=== PATIENT | female | born 1980 | race African-American/Black ===

== ENCOUNTER 2022-01-16 20:05 | Emergency (ER) | payer OTHER, SELFPAY ==
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
[2022-01-16 20:16] VITALS: BP 113/72; PULSE 98; RESP 20; TEMP 36.8; O2SAT 100
[2022-01-16 20:44] VITALS: BP 113/72; BP 130/74; PULSE 129; PULSE 98; RESP 16; TEMP 36.8; O2SAT 100; BMI 32.5
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
[2022-01-16] MEDS: Acetaminophen 325 MG TABLET 975 MG PO (22:16)
[2022-01-16] MEDS: Ibuprofen 400 MG TABLET PO (22:16)
== END 2022-01-16 23:19 | disposition home or self-care (01) ==
PROVIDERS: Emergency Provider Student in an Organized Health Care Education/Training Program; PCP Internal Medicine
DX: S00.83XA Contusion of other part of head, initial encounter (principal); Y00.XXXA Assault by blunt object, initial encounter; Y93.89 Activity, other specified; Y92.9 Unspecified place or not applicable; Y99.9 Unspecified external cause status
CPT/HCPCS: 70450; 99284

== ENCOUNTER 2025-06-24 10:19 | Inpatient (IN) | payer OTHER, SELFPAY ==
--- NOTE | ~2025-06-24 | XR_ITS ---
CLINICAL HISTORY: Bradycardia, hypotension 1 view chest x-ray Comparison: None provided Findings: No consolidation or effusion. Normal size heart. No acute fracture. IMPRESSION: 1. No acute findings. This document has been electronically signed by: Kedar Saleh MD on 06/25/2025 20:23:24
[2025-06-24 10:23] VITALS: BP 118/63; PULSE 88; RESP 16; TEMP 36.1; O2SAT 98; BMI 28.1
--- NOTE | 2025-06-24 10:45 | ED.GENADULT ---
HPI - General Adult General Chief complaint: Psychiatric Symptoms Stated complaint: hallucination Time Seen by Provider: 06/24/25 10:32 Source: patient Mode of arrival: ambulatory Limitations: no limitations History of Present Illness ED Provider: Verenice Varner PA-C HPI narrative: Patient is a 45 year old assigned female at with a history of crack cocaine use presenting to the emergency department today with suicidal ideation and crack use. Patient states that she has been feeling more down / suicidal lately and has been using crack cocaine. Patient denies any other complaints at this time. Related Data Home Medications ?Medication ?Instructions ?Recorded ?Confirmed bupropion HCl 75 mg tablet 75 mg PO DAILY 06/24/25 06/24/25 hydroxyzine HCl 50 mg tablet 50 mg PO BID PRN Anxiety 06/24/25 06/24/25 ibuprofen 600 mg tablet 600 mg PO BID PRN pain 06/24/25 06/24/25 nicotine (polacrilex) 4 mg gum 4 mg PO Q4H PRN Nicotine Cravings 06/24/25 06/24/25 trazodone 50 mg tablet 50 mg PO BEDTIME 06/24/25 06/24/25 Allergies Allergy/AdvReac Type Severity Reaction Status Date / Time No Known Allergies Allergy Verified 06/24/25 10:25 Review of Systems Constitutional: Constitutional: Reports as per HPI Eyes: Eyes: Reports as per HPI ENT: Reports as per HPI Cardiovascular: Cardiovascular: Reports as per HPI Respiratory: Respiratory: Reports as per HPI Gastrointestinal: Gastrointestinal: Reports as per HPI Genitourinary: Genitourinary: Reports as per HPI Musculoskeletal: Musculoskeletal: Reports as per HPI Integumentary/Breasts: Skin/Breast: Reports as per HPI Neurologic: Reports as per HPI Psychiatric: Psychiatric: Reports as per HPI Endocrine: Endocrine: Reports as per HPI Hematologic/Lymphatic: Hematologic/Lymphatic: Reports as per HPI Allergic/Immunologic: Allergic/Immunologic: Reports as per HPI [facility] Past Medical History Attestation statement: The following information was validated with the patient. Source: old records reviewed and nursing notes reviewed Medical History (Updated 06/26/25 @ 11:26 by Bipin Acevedo MD) Bipolar depression Social History Social History Household Members: None Housing: Homeless Housing Other:: pt stated she sometimes stay with her mother, friend, or on street Do you presently have visiting nurse or other home services: No Patient Tobacco Use Status: Current someday Tobacco user Tobacco use type: Cigarette Cigarettes Per Day: 3 Years Smoked: 20 e-Cigarette/Vaping Use: Never Used Patient Interested in Nicotine Replacement: No Patient Given Instructions on How to Stop Smoking: No (Pt declined) Second Hand Smoke Exposure: No Substance Use Type: Crack/Cocaine Currently Displaying Signs/Symptoms of Drug Intoxication Withdrawal: No Do you feel safe in your current relationship?: No Current Relationship Is there a partner from a previous relationship who is making you feel unsafe now?: No Are you made to feel afraid or neglected: No Spiritual Healthcare Practices: None Yarsanism Healthcare Practices: None Cultural Healthcare Practices: None Advance Directives: No Advance Directives Information Provided: Yes Do you have thoughts of harming others: None Do you have a plan to hurt others: No Plan Recently lost weight without trying: No Eating poorly because of decreased appetite: No Nutrition Risks: No Nutritional Risk Patient : No : No Poor oral hygiene: No service: No Sexual orientation: Straight/Heterosexual Physical Exam ED Vital Signs: Vital Signs - 24 hr 06/24/25 20:58 06/24/25 22:21 06/25/25 00:04 Temperature 99.3 F Pulse Rate 74 48 L 53 Respiratory Rate 18 16 Blood Pressure 74/58 L 77/48 L 79/48 L Pulse Oximetry 100 100 Oxygen Delivery Method Room Air Room Air 06/25/25 01:10 06/25/25 03:17 06/25/25 03:55 Temperature Pulse Rate 53 Respiratory Rate 16 Blood Pressure 92/52 L 78/48 L 78/48 L Pulse Oximetry Oxygen Delivery Method Room Air 06/25/25 06:59 06/25/25 07:58 06/25/25 08:47 Temperature Pulse Rate 51 57 Respiratory Rate 20 16 Blood Pressure 73/35 L 89/44 L 89/48 L Pulse Oximetry Oxygen Delivery Method 06/25/25 10:33 Temperature Pulse Rate 52 Respiratory Rate 18 Blood Pressure 93/42 L Pulse Oximetry Oxygen Delivery Method BMI result Body Mass Index 28.1 Const General: cooperative, no acute distress, alert and awake Nutritional Appearance: well nourished Orientation/consciousness: patient oriented x3 HENMT Head: Yes normal to inspection and Yes atraumatic Ears: hearing grossly normal bilaterally and external ears normal General nose exam: Normal external nose present, no nasal discharge noted and no epistaxis Face and sinus: Yes normal facial exam, No abrasion and No laceration Mouth: Normal oral and palatal mucosa present, no drooling and no muffled voice Eyes General: appearance normal, both eyes and all related structures Periorbital: periorbital findings normal Eyelids: Yes eyelids normal Conjunctivae: conjunctivae normal Pupils: Equal, round and reactive pupils present EOM: EOMs intact bilaterally Neck Neck: Yes normal visual inspection and Yes full ROM Resp Effort & Inspection: normal respiratory effort and able to speak in complete sentences Neuro General: patient oriented x3, moves all extremities and CN's II-XI intact bilaterally Cranial nerves: Yes Equal, round and reactive pupils present Cognition (Neuro): normal cognition Extrem General: Yes normal to inspection, Yes full ROM and Yes capillary refill normal Psych Appearance: grossly normal Mental Status: mental status grossly normal Thought content: Suicidality present Course Reevaluation(s) Reevaluation #1: [address] Hayden BP 74/58 Blood pressure noted clinically no sign of sepsis she is afebrile she has a normal white count ,she has no symptoms we will give her fluids and reassess. I personally examined the patient she is completely asymptomatic she tells me that usually she has a low blood pressure all the time when she see her PCP I did an EKG she is in sinus rhythm rate is 58 no ischemia.Will move anyway to the [facility] ED for monitoring Time: 21:08 Reevaluation #2: DR Hayden note :Troponin 115 the patient has no chest pain will check tropi#2 I feel great BP 92/52 now remain asymptomatic waiting for repeat tropi 1:45 AM case was signed out to DR Renner #2 tropi pending,BP improving remain asyntomatic clinically Time: 01:45 Reevaluation #3: I, Dr. Block have take over the care of this patient, I reviewed pertinent blood work and imaging, re-evaluated the patient when appropriate. Patient has been hypotensive overnight received 10 mg of midodrine, total of 4 L of IV fluids by the time I presented in the morning, patient remains asymptomatic, at checked her blood work, she had slight lactate elevation 2.1 that cleared, troponin slight spike possibly in the setting of cocaine use, did not presenting with the ECG changes or continued elevation of trops has not had any fevers, bedside ultrasound reveals no pericardial effusion no RV strain, IVC is non collapsible she is fairly euvolemic, manual blood pressure 82/50, her MAP is 61 shock index 0.7, patient states that her blood pressure is usually very low reports it to be in the 80s of the 70s however not able to confirm that she has had normal blood pressure in the past My plan: I will administer 5 more mg of midodrine and order albumin if she is still hypotensive, I will speak to the hospitalist team and if they want we will consult ICU, but as patient is asymptomatic I do not really have much more to contribute but she may not be appropriate for behavioral health pod 11:00 AM 06/25/2025 (Dr. Hosea Block): I spoke to the medical team and admitted him Time: 06:23 Medications Administered Discontinued Medications Generic Name Dose Route Start Last Admin Trade Name Freq PRN Reason Stop Dose Admin Acetaminophen 650 mg 06/25/25 11:13 06/25/25 19:06 Acetaminophen 325 Mg Tablet PO 650 mg Q6H PRN Administration Pain, Mild 1-3,fever,headache Bupropion HCl 75 mg 06/25/25 09:00 06/27/25 08:31 Bupropion Hcl 75 Mg Tablet PO 75 mg DAILY ED Administration Enoxaparin Sodium 40 mg 06/25/25 11:15 06/26/25 12:29 Enoxaparin Sodium 40 Mg/0.4 Ml Syringe SUBCUT Not Given Q24H ED Sodium Chloride 1,000 mls @ 999 mls/hr 06/24/25 21:15 06/25/25 01:19 Ns IVCONT 06/24/25 22:15 Infused .Q1H1M ED Infusion Sodium Chloride 1,000 mls @ 999 mls/hr 06/24/25 21:15 06/25/25 01:19 Ns IVCONT 06/24/25 22:15 Infused .Q1H1M ED Infusion Lactated Ringer's 1,000 mls @ 999 mls/hr 06/25/25 00:30 06/25/25 06:11 Lr IV 06/25/25 01:30 Infused .Q1H1M ED Infusion Sodium Chloride 1,000 mls @ 999 mls/hr 06/25/25 03:26 06/25/25 06:10 Ns IVCONT 06/25/25 04:26 Infused .Q1H1M ONE Infusion Albumin Human 50 mls @ 100 mls/hr 06/25/25 06:30 06/25/25 08:19 Kedbumin 25 % IV 06/25/25 07:29 Infused Q30M ED Infusion Lactated Ringer's 1,000 mls @ 125 mls/hr 06/25/25 11:15 06/27/25 08:33 Lr IVCONT 125 mls/hr .Q8H ED Administration Ibuprofen 600 mg 06/24/25 13:44 06/24/25 14:24 Ibuprofen 600 Mg Tablet PO 06/24/25 13:45 600 mg ONCE ONE Administration Midodrine 10 mg 06/25/25 03:26 06/25/25 03:55 Midodrine Hcl 10 Mg Tablet PO 06/25/25 03:27 10 mg ONCE ONE Administration Midodrine 5 mg 06/25/25 06:29 06/25/25 06:59 Midodrine Hcl 5 Mg Tablet PO 06/25/25 06:30 5 mg ONCE ONE Administration Sodium Chloride 3 ml 06/25/25 16:00 06/27/25 08:37 0.9 % Sodium Chloride Flush 3 Ml Syringe IVFLUSH Not Given QSHIFT ED Trazodone HCl 50 mg 06/24/25 21:00 06/24/25 20:34 Trazodone Hcl 50 Mg Tablet PO 50 mg BEDTIME ED Administration Procedures Ultrasound ED POC Ultrasound: EMERGENCY ULTRASOUND REPORT?Point of Care Cardiac (Echo-Focus), images I locally stored Emergent Cardiac for Indication: Hypotension Views Used: Parasternal long, parasternal short, 4 chamber, subxiphoid, IVC Pericardial Effusion/Tamponade Findings: Global LV Fxn: Preserved IVC Dilation and Resp Variation: Non collapsed Impression: Good cardiac squeeze, no pericardial effusion, no RV strain, euvolemic Medical Decision Making Medical Decision Making MDM Narrative: Patient is a 45 year old assigned female at with a history of crack cocaine use presenting to the emergency department today with suicidal ideation and crack use. Patient's physical exam was as noted in the physical exam portion of this note. Patient's blood work was unremarkable. Patient was evaluated by the CARE team who recommended inpatient level of psychiatric care. I explained my physical exam findings as well as all test results to the patient. I answered all questions asked by the patient. Patient placed in observation at 1046 on 06/24/2025 pending either admission to the [facility] Psychiatric floor or transferred to an appropriate psychiatric facility. Differential Diagnosis Differential Diagnoses: The differential diagnosis associated with the presentation includes Suicidal ideation Crack cocaine use Admission/Observation Consideration of admission/observation: Escalation of care including admission/observation considered Patient will either be admitted to the [facility] Psychiatric floor or transferred to an appropriate inpatient psychiatric facility. Consult Healthcare Provider Management of the patient was discussed with: Behavioral Health Provider (spoke with the CARE team as noted in the MDM Rationale portion of this note. ) Lab Data [facility] Lab Attestation statement: I reviewed the patient's lab results. My interpretation of these results are in the MDM Rationale portion of this note. 06/24/25 11:10 06/25/25 20:38 Labs: Lab Results 06/24/25 06/24/25 06/24/25 Range/Units 10:48 11:10 23:32 WBC 6.5 (4.8-10.8) X10*3/uL RBC 3.97 L (4.20-5.50) X10*6/uL Hgb 10.8 L (12.0-16.0) g/dl Hct 32.7 L (37.0-47.0) % MCV 82.4 (80.0-98.0) fL MCH 27.2 (27.0-33.0) pg MCHC 33.0 (31.0-35.0) g/dl RDW 13.7 (11.0-16.0) % Plt Count 286 (160-400) X10*3/uL MPV 9.4 (9.4-12.3) fL Immature Gran % (Auto) 0.6 H (0.0-0.4) % Neut % (Auto) 77.8 H (45-73) % Lymph % (Auto) 13.4 L (20-40) % [place] % (Auto) 7.1 (2-11) % Eos % (Auto) 0.6 (0-4) % Baso % (Auto) 0.5 (0-2) % Lymph # (Auto) 0.9 L (1.2-4.9) X10*3/uL [place] # (Auto) 0.5 (0.1-1.2) X10*3/uL Eos # (Auto) 0.0 (0.0-0.4) X10*3/uL Baso # (Auto) 0.0 (0.0-0.2) X10*3/uL Abs Immat Gran (auto) 0.04 H (0.00-0.03) X10*3/uL Absolute Neuts (auto) 5.1 (2.0-8.3) x10*3/uL Absolute Nucleated RBC 0.000 (0.0-0.012) X10*3/uL Nucleated RBC % (auto) 0.0 (0.0-0.2) /100WBC Sodium 141 (135-145) mmol/L Potassium 3.4 (3.3-5.1) mmol/L Chloride 106 (96-108) mmol/L Carbon Dioxide 25 (22-29) mmol/L Anion Gap 13 (12-20) BUN 9 (9-16) mg/dL Creatinine 0.73 (0.5-1.4) mg/dL Estim Creat Clear Calc 98.6 Estimated GFR > 60 Random Glucose 86 (60-115) mg/dL Lactic Acid 2.1 H* (0.5-2.0) mmol/L Lactic Acid F/U @ 2Hr (0.5-2.0) mmol/L Calcium 9.0 (8.4-10.2) mg/dL Total Bilirubin 0.6 (0.0-1.0) mg/dL AST 24 (5-31) U/L ALT 9 (0-31) U/L Alkaline Phosphatase 61 (39-117) U/L Troponin I High Sens 115.5 H* (<3.5-17.0) ng/L Total Protein 7.0 (6.5-8.0) g/dL Albumin 4.3 (3.5-5.0) g/dL TSH (0.32-4.0) uIU/mL Urine Color Yellow Urine Appearance Clear Urine pH 6.0 (5.0-9.0) Ur Specific [place] 1.010 (1.005-1.025) Urine Protein Negative (Neg-Trace) mg/dL Urine Glucose (UA) Negative (Negative) mg/dL Urine Ketones Trace (Negative) mg/dL Urine Blood Negative (Negative) Urine Nitrite Negative (Negative) Ur Leukocyte Esterase Negative (Negative) Urine RBC 0-2 (0-2) /HPF Urine WBC 0-5 (0-5) /HPF Ur Squamous Epith Cells 11-20 (0-2) /HPF Urine Bacteria 4+ (None Seen) Hyaline Casts 3-5 (0-2) /LPF Urine Test NEGATIVE (NEGATIVE) Urine Opiates Screen Not Detected (Not Detect) Ur Buprenorphine Scrn Not Detected (Not Detect) ng/mL Ur Oxycodone Screen Not Detected (Not Detect) ng/mL Urine Methadone Screen Not Detected (Not Detect) ng/mL Urine Fentanyl Screen Not Detected (Not Detect) Ur Barbiturates Screen Not Detected (Not Detect) Ur Phencyclidine Scrn Not Detected (Not Detect) Ur Amphetamines Screen Not Detected (Not Detect) U Benzodiazepines Scrn Not Detected (Not Detect) Urine Cocaine Screen POSITIVE H (Not Detect) U Marijuana (THC) Screen POSITIVE H (Not Detect) Ethyl Alcohol < 10 mg/dL 06/25/25 Range/Units 03:02 WBC (4.8-10.8) X10*3/uL RBC (4.20-5.50) X10*6/uL Hgb (12.0-16.0) g/dl Hct (37.0-47.0) % MCV (80.0-98.0) fL MCH (27.0-33.0) pg MCHC (31.0-35.0) g/dl RDW (11.0-16.0) % Plt Count (160-400) X10*3/uL MPV (9.4-12.3) fL Immature Gran % (Auto) (0.0-0.4) % Neut % (Auto) (45-73) % Lymph % (Auto) (20-40) % [place] % (Auto) (2-11) % Eos % (Auto) (0-4) % Baso % (Auto) (0-2) % Lymph # (Auto) (1.2-4.9) X10*3/uL [place] # (Auto) (0.1-1.2) X10*3/uL Eos # (Auto) (0.0-0.4) X10*3/uL Baso # (Auto) (0.0-0.2) X10*3/uL Abs Immat Gran (auto) (0.00-0.03) X10*3/uL Absolute Neuts (auto) (2.0-8.3) x10*3/uL Absolute Nucleated RBC (0.0-0.012) X10*3/uL Nucleated RBC % (auto) (0.0-0.2) /100WBC Sodium (135-145) mmol/L Potassium (3.3-5.1) mmol/L Chloride (96-108) mmol/L Carbon Dioxide (22-29) mmol/L Anion Gap (12-20) BUN (9-16) mg/dL Creatinine (0.5-1.4) mg/dL Estim Creat Clear Calc Estimated GFR Random Glucose (60-115) mg/dL Lactic Acid (0.5-2.0) mmol/L Lactic Acid F/U @ 2Hr 1.2 (0.5-2.0) mmol/L Calcium (8.4-10.2) mg/dL Total Bilirubin (0.0-1.0) mg/dL AST (5-31) U/L ALT (0-31) U/L Alkaline Phosphatase (39-117) U/L Troponin I High Sens 98.0 H* (<3.5-17.0) ng/L Total Protein (6.5-8.0) g/dL Albumin (3.5-5.0) g/dL TSH 2.09 (0.32-4.0) uIU/mL Urine Color Urine Appearance Urine pH (5.0-9.0) Ur Specific [place] (1.005-1.025) Urine Protein (Neg-Trace) mg/dL Urine Glucose (UA) (Negative) mg/dL Urine Ketones (Negative) mg/dL Urine Blood (Negative) Urine Nitrite (Negative) Ur Leukocyte Esterase (Negative) Urine RBC (0-2) /HPF Urine WBC (0-5) /HPF Ur Squamous Epith Cells (0-2) /HPF Urine Bacteria (None Seen) Hyaline Casts (0-2) /LPF Urine Test (NEGATIVE) Urine Opiates Screen (Not Detect) Ur Buprenorphine Scrn (Not Detect) ng/mL Ur Oxycodone Screen (Not Detect) ng/mL Urine Methadone Screen (Not Detect) ng/mL Urine Fentanyl Screen (Not Detect) Ur Barbiturates Screen (Not Detect) Ur Phencyclidine Scrn (Not Detect) Ur Amphetamines Screen (Not Detect) U Benzodiazepines Scrn (Not Detect) Urine Cocaine Screen (Not Detect) U Marijuana (THC) Screen (Not Detect) Ethyl Alcohol mg/dL Critical Care Time Critical Care Time Critical Care Time: Yes Total Critical Care Time: 36 Attestation: I spent 36 minutes of Critical Care Time with this patient. This does not include time spent on separately reported billable procedures. Discharge Plan Discharge Clinical Impression: Suicidal ideation, Crack cocaine use Hypotension Qualifiers: Hypotension type: other hypotension type Qualified Code(s): I95.89 - Other hypotension Patient Disposition: Admitted As Inpatient Interventions: [place]-Suicide Risk Severity Scale Last Done: 06/27/25 00:00 Admission Worksheet (ED) Last Done: 06/25/25 20:44 Discharge Date/Time: 06/26/25 00:12
[2025-06-24 11:00] LABS: Appearance Urine Clear; Glucose Urine UA Negative (Negative); PH 6.0 (5.0-9.0); Specific Gravity - Urine 1.010 (1.005-1.025)
[2025-06-24 11:01] LABS: UPreg QC Valid YES
[2025-06-24 11:17] LABS: MANUAL DIFF FLAG NO
[2025-06-24 11:22] LABS: Cannabinoid Screen Urine POSITIVE (Not Detect)
[2025-06-24 11:26] LABS: Hematocrit 32.7 % (37.0-47.0); Hemoglobin 10.8 g/dl (12.0-16.0); Imm Gran Abs Auto 0.04 X10*3/uL (0.00-0.03); Imm Gran Pct Auto 0.6 % (0.0-0.4); Lymphocytes Absolute Auto 0.9 X10*3/uL (1.2-4.9); Mean Corpuscular HGB Conc 33.0 g/dl (31.0-35.0); Mean Corpuscular Hemoglobin 27.2 pg (27.0-33.0); Mean Corpuscular Volume 82.4 fL (80.0-98.0); NRBC Abs Auto 0.000 X10*3/uL (0.0-0.012); NRBC Pct Auto 0.0 /100WBC (0.0-0.2); Platelet Count 286 X10*3/uL (160-400); Red Blood Count 3.97 X10*6/uL (4.20-5.50); White Blood Count 6.5 X10*3/uL (4.8-10.8)
--- OUTSIDE RECORDS SUMMARY | 2025-06-24 11:30 | XMS_ITS | Clinical Summary ---
Author Organization [facility] Address [address] [place] [address] Phone Care Team Providers Care Test Conductor Name Role Phone Sandi Adam MD Primary Care Provider [phone] Allergies Active Allergy Reactions Criticality Noted Date Comments Oxycodone-Acetaminophen Rash Medium 11/26/2024 Tramadol Rash Medium 11/26/2024 Medications hydrOXYzine pamoate (VISTARIL) 50 mg capsule Take 1 capsule (50 mg total) by mouth 3 (three) times a day if needed for anxiety. Active sertraline (ZOLOFT) 25 mg tablet Take 1 tablet (25 mg total) by mouth 1 (one) time each day. Active OLANZapine (ZyPREXA) 10 mg tablet Take 1 tablet (10 mg total) by mouth at bedtime. Active lamoTRIgine (LaMICtal) 25 mg tablet Take 2 tablets (50 mg total) by mouth 1 (one) time each day. Active prazosin (MINIPRESS) 1 mg capsule Take 1 capsule (1 mg total) by mouth at bedtime. Active nicotine (NICODERM CQ) 14 mg/[address] 1 patch on the skin 1 (one) time each day at the same time. 12/29/2024 Active cephalexin (KEFLEX) 500 mg capsule Take 1 capsule (500 mg total) by mouth 2 (two) times a day for 5 days. 10 each 06/05/2025 06/10/20 25 Encounters Date Type Department Care Team Description 06/05/2025 5:01 PM EDT - 06/06/2025 10:38 AM EDT Emergency [facility] Emergency [address] [place] [address] Chau Garcia MD Landry, MD Kwesi León, Timbo Varghese MD Acute UTI (Primary Dx); Drug abuse, cocaine type ([facility] V24, [facility] V28) Discharge Disposition: Home or Self Care from Last 3 Months Surgical History Surgery Date Site/Laterality Comments KNEE SURGERY PROCEDURE: HISTORICAL KNEE SURGERY BARIATRIC SURGERY 10/19/2019 - 10/18/2020 sleeve gastrrectomy with hiatal hernia repair per EMR Medical History Medical History Date Comments Anxiety DX:Anxiety Bipolar disorder ([facility] V2 4, [facility] V28) DX:Bipolar disorder ([facility]) CHRISTIE III (cervical intraepith elial neoplasia III) 04/27/2020 DX:CHRISTIE III (cervical intraep ithelial neoplasia III) GERD (gastroesophageal reflux disease) 04/27/2020 DX:GERD (gastroesophageal reflux disease) Alcohol abuse Hypotension Depression Suicide ([facility] V24, [facility] V28) Family History Medical History Relation Name Comments Diabetes Maternal Grandmother ADD / ADHD Son Relation Name Status Comments Maternal Grandmother Son Social History Tobacco Use Types Packs/Day Years Used Date Smoking Tobacco: Every Day Cigarettes Smokeless Tobacco: Never Tobacco Cessation:Ready to Q uit: No; Counseling Given: Not Answered Alcohol Use Standard Drinks/Week Comments Yes 0 (1 standard drink = 0.6 oz pure alcohol) states drinks a big bottle daily unable to quantify size of bottle, last drink late last zane, unsure time Comments Unknown Sex and Gender Information Value Date Recorded Sex Assigned at Female 01/23/2025 10:31 PM EDT Legal Sex Female 10:22 AM EST Gender Identity Female 01/23/2025 10:31 PM EDT Sexual Orientation Straight 01/23/2025 10 :31 PM EDT Obstetrics History Last Filed Vital Signs Vital Sign Reading Time Taken Comments Blood Pressure 104/64 06/06/2025 10:34 AM EDT Pulse 65 06/06/2025 10:23 AM EDT Temperature 36.5 C (97.7 F) 06/06/2025 10:23 AM EDT Respiratory Rate 18 06/06/2025 10:23 AM EDT Oxygen Saturation 98% 06/06/2025 10:23 AM EDT Inhaled Oxygen Concentration - - Weight 76.7 kg (169 lb) 06/05/2025 4:56 PM EDT Height 165.1 cm (5' 5 ) 06/05/2025 4:56 PM EDT Body Mass Index 28.12 06/05/2025 4:56 PM EDT Plan of Treatment Health Maintenance Due Date Last Done Comments Breast Cancer Screening 1979 Hepatitis A Vaccines (1 of 2 - Risk 2-dose series) 1998 Pneumococcal Vaccine: Pediatrics (0 to 5 Years) and At-Risk Patients (6 to 49 Years) (1 of 2 - PCV) 1998 Cervical Cancer Screening: Pap Smear 2000 Hepatitis B Vaccines (3 of 3 - 19+ 3-dose series) 03/29/2008 10/26/2007, 09/28/2007 DTaP,Tdap,and Td Vaccines (2 - Td or Tdap) 08/08/2021 08/08/2011 Cholesterol Screening (Lipid Panel) 09/16/2022 Colorectal Cancer Screening: Colonoscopy 09/16/2022 HIV Screening 09/16/2022 Hepatitis C Screening 09/16/2022 Social Influencers of Health Screening 09/16/2022 Depression Screening 10/19/2024 COVID-19 Vaccine ( season) 2025 09/25/2021, 01/26/2021, 12/29/2020 Influenza Vaccine (#1) 2025 , 06/18/2020, 06/18/2020, Additional history exists HIB Vaccines Aged Out No longer eligi ble based on patient's age to complete this topic HPV Vaccines Aged Out No longer eligi ble based on patient's age to complete this topic IPV Vaccines Aged Out No longer eligi ble based on patient's age to complete this topic MMR Vaccines Aged Out No longer eligi ble based on patient's age to complete this topic Meningococcal ACWY Vaccine Aged Out N o longer eligible based on patient's age to complete this topic Meningococcal B Vaccine Aged Out No l onger eligible based on patient's age to complete this topic RSV Immunization Patients Under 20 months Aged Out No longer eligible based on patient's age to complete this topic Varicella Vaccines Aged Out No longer eligible based on patient's age to complete this topic Procedures Procedure Name Priority Date/Time Associated Diagnosis Comments ECG ANNOTATED 06/06/2025 CBC WITH AUTO DIFFERENTIAL STAT 06/05/2025 5:51 PM EDT SALICYLATE LEVEL STAT 06/05/2025 5:51 PM EDT ACETAMINOPHEN LEVEL STAT 06/05/2025 5 :51 PM EDT ETHANOL STAT 06/05/2025 5:51 PM EDT COMPREHENSIVE METABOLIC PANEL STAT 06/05/2025 5:51 PM EDT CBC AND DIFFERENTIAL STAT 06/05/2025 5:51 PM EDT ECG 12-LEAD STAT 06/05/2025 5:50 PM EDT POC , URINE DIAGNOSTIC STAT 06/05/2025 5:25 PM EDT ROGERS URINE CULTURE TUBE STAT 06/05/2025 5:21 PM EDT URINALYSIS WITH REFLEX MICROSCOPIC AND CULTURE STAT 06/05/2025 5:21 PM EDT URINALYSIS WITH REFLEX MICROSCOPIC AND CULTURE STAT 06/05/2025 5:21 PM EDT CULTURE URINE STAT 06/05/2025 5:21 PM EDT METHADONE SCREEN, URINE STAT 06/05/2025 5:20 PM EDT PHENCYCLIDINE, URINE STAT 06/05/2025 5:20 PM EDT BUPRENORPHINE SCREEN, URINE STAT 06/05/2025 5:20 PM EDT DRUG ABUSE SCREEN 8A PANEL, URINE STAT 06/05/2025 5:20 PM EDT from Last 3 Months Results * ECG-Annotated (06/06/2025) us Provider Onbase MD ECG ORDERABLES Final Result * (ABNORMAL) CBC auto differential (06/05/2025 5:51 PM EDT) [facility] Signature WBC 7.5 4.8 - 10.8 K/mcL LAB HEMETOLOGY METHOD 06/05/2025 6:40 PM EDT [facility] RBC 4.00 3.80 - 4.80 M/mcL LAB HEM[facility]OLOGY [facility] Hemoglobin 10.5(L) 11.5 - 16.0 g/dL LAB HEMETOLOGY METHOD 06/05/2025 6:40 PM [facility] Hematocrit 34.7(L) 35.0 - 47.0 % LAB HEMETOLOGY METHOD 06/05/2025 6[facility] MCV 86.8 79.0 - 98.0 FL LAB HEMETOLOGY METHOD 06/05/2025 6:[facility] MCH 26.3(L) 27.0 - 32.0 pcg LAB HEMETOLOGY METHOD 06/05/2025 6:40 PM [facility] MCHC 30.3(L) 32.0 - 37.0 g/dL LAB HEMETOLOGY METHOD 06/05/2025 6:40 PM [facility] RDW 15.4(H) 11.0 - 15.0 % LAB HEMETOLOGY METHOD 06/05/2025 6:[facility] Platelets 364 130 - 400 K/mcL LAB HEMETOLOGY METHOD 06/05/2025 6:40 PM [facility] MPV 9.6 7.0 - 11.0 FL LAB HEMETOLOGY METHOD 06/05/2025 6:[facility] NRBC 0.0 <1.0 % LAB HEMETOLOGY METHOD 06/05/2025 6:40 PM EDT [facility] NRBC Absolute 0.00 <0.10 K/mcL LAB HEMETOLOGY METHOD 06/05/2025 6:40 PM EDT [facility] Neutrophils Relative 74.2 % LAB HEMETOLOGY METHOD 06/05/2025 6:40 PM EDT [facility] Lymphocytes Relative 17.1 % LAB HEMETOLOGY METHOD 06/05/2025 6:40 PM EDT [facility] Monocytes Relative 5.7 % LAB HEMETOLOGY METHOD 06/05/2025 6:40 PM EDT [facility] Eosinophils Relative 2.1 % LAB HEMETOLOGY METHOD 06/05/2025 6:40 PM [facility] Basophils Relative 0.4 % LAB HEMETOLOGY METHOD 06/05/2025 6:40 PM EDT [facility] Immature Granulocytes Relative 0.5 % LAB HEMETOLOGY METHOD 06/05/2025 6:[facility] Neutrophils Absolute 5.59 1.50 - 7.00 K/mcL LAB HEMETOLOGY METHOD 06/05/2025 6:[facility] Lymphocytes Absolute 1.29 1.00 - 5.00 K/mcL LAB HEMETOLOGY METHOD 06/05/2025 6:40 PM EDT [facility] Monocytes Absolute 0.43 0.20 - 1.00 K/mcL LAB HEMETOLOGY METHOD 06/05/2025 6:40 PM EDT [facility] Eosinophils Absolute 0.16 0.00 - 0.50 K/mcL LAB HEMETOLOGY METHOD 06/05/2025 6:[facility] Basophils Absolute 0.03 0.00 - 0.20 K/mcL LAB HEMETOLOGY METHOD 06/05/2025 6:40 PM EDT [facility] Immature Granulocytes Absolute 0.04(H) 0.00 - 0.03 K/mcL LAB HEMETOLOGY METHOD 06/05/2025 6:40 PM EDT [facility] Blood Venous blood specimen / Unknown Venipuncture / Unknown 06/05/2025 5:51 PM EDT 06/05/2025 6:32 PM EDT Rosa Maria AMAYA LAB BLOOD ORDERABLES Fin al Result Performing Organization Address [facility]/ZIP Co de Phone Number [facility] [address] [place] [address], [place] [phone] * Ethanol (06/05/2025 5:51 PM EDT) Ethanol Level 4 0 - 10 mg/dL LAB CHEMISTRY METHOD 06/05/2025 7:06 PM EDT [facility] Blood Venous blood specimen / Unknown Venipuncture / Unknown 06/05/2025 5:51 PM EDT 06/05/2025 6:32 PM EDT Rosa Maria AMAYA LAB BLOOD ORDERABLES Fin al Result Performing Organization Address [facility]/ZIP Co de Phone Number [facility] [address] [place] [address], [place] [phone] * (ABNORMAL) Acetaminophen level (06/05/2025 5:51 PM EDT) Acetaminophen Level <2.0(L) 10.0 - 30.0 mcg/mL LAB CHEMISTRY METHOD 06/05/2025 7:06 PM EDT [facility] Blood Venous blood specimen / Unknown Venipuncture / Unknown 06/05/2025 5:51 PM EDT 06/05/2025 6:32 PM EDT Rosa Maria AMAYA LAB BLOOD ORDERABLES Fin al Result Performing Organization Address [facility]/ZIP Co de Phone Number [facility] [address] [place] [address], * (ABNORMAL) Salicylate level (06/05/2025 5:51 PM EDT) Salicylate Level <1.7(L) 2.0 - 29.0 mg/dL LAB CHEMISTRY METHOD 06/05/2025 7:06 PM EDT [facility] Blood Venous blood specimen / Unknown Venipuncture / Unknown 06/05/2025 5:51 PM EDT 06/05/2025 6:32 PM EDT Rosa Maria AMAYA LAB BLOOD ORDERABLES Fin al Result Performing Organization Address [facility] Co de Phone Number [facility] [address] [place] [address], * (ABNORMAL) Comprehensive metabolic panel (06/05/2025 5:51 PM EDT) Sodium 140 133 - 145 mmol/L LAB CHEMISTRY METHOD 06/05/2025 7:08 PM [facility] Potassium 4.2 3.5 - 5.5 mmol/L LAB CHEMISTRY METHOD 06/05/2025 7:08 PM [facility] Chloride 108 96 - 110 mmol/L LAB CHEMISTRY METHOD 06/05/2025 7:08 PM [facility] CO2 30 21 - 32 mmol/L LAB CHEMISTRY METHOD 06/05/2025 7:08 PM [facility] Anion Gap 2(L) 3 - 11 LAB CHEMISTRY METHOD 06/05/2025 7:08 PM [facility] Glucose 82 70 - 100 mg/dL LAB CHEMISTRY METHOD 06/05/2025 7:08 PM [facility] BUN 14 5 - 25 mg/dL LAB CHEMISTRY METHOD 06/05/2025 7:08 PM [facility] Creatinine 0.81 0.50 - 1.10 mg/dL LAB CHEMISTRY METHOD 06/05/2025 7:08 PM [facility] eGFR 91 >=60 mL/min/1. 73m2 LAB CHEMISTRY METHOD 06/05/2025 7:08 PM [facility] Comment:Calculation based on the Chronic Kidney Disease Epidemiology Collaboration (CKD-EPI) equation refit without adjustment for race. BUN/Creatinine Ratio 17.3 LAB CHEMISTRY METHOD 06/05/2025 7:08 PM [facility] Calcium 9.2 8.5 - 10.5 mg/dL LAB CHEMISTRY METHOD 06/05/2025 7:08 PM [facility] AST (SGOT) 12 10 - 42 unit/L LAB CHEMISTRY METHOD 06/05/2025 7:08 PM [facility] ALT (SGPT) 21 10 - 60 unit/L LAB CHEMISTRY METHOD 06/05/2025 7:08 PM [facility] Alkaline Phosphatase 55 42 - 121 unit/L LAB CHEMISTRY METHOD 06/05/2025 7:08 PM [facility] Total Protein 6.5 6.0 - 8.0 g/dL LAB CHEMISTRY METHOD 06/05/2025 7:08 PM [facility] Albumin 3.5 3.2 - 5.0 g/dL LAB CHEMISTRY METHOD 06/05/2025 7:08 PM [facility] Total Bilirubin 0.3 0.0 - 1.4 mg/dL LAB CHEMISTRY METHOD 06/05/2025 7:08 PM [facility] Blood Venous blood specimen / Unknown Venipuncture / Unknown 06/05/2025 5:51 PM EDT 06/05/2025 6:32 PM EDT us Rosa Maria AMAYA LAB BLOOD ORDERABLES Fin al Result [facility] [address] [place] [address], [place] [phone] * ECG 12 lead (06/05/2025 5:50 PM EDT) Pathologist [facility] Ventricular Rate ECG 67 BPM GEMUSE Atrial Rate 67 BPM GEMUSE P-R Interval 142 ms GEMUSE QRS Duration 78 ms GEMUSE Q-T Interval 404 ms GEMUSE QTc 426 ms GEMUSE P Wave Terrell 47 degrees GEMUSE R Terrell 12 degrees GEMUSE T Terrell 26 degrees GEMUSE ECG Interpretation Normal sinus rhythm with sinus arrhythmia Normal ECG When compared with ECG of 26-NOV-2024 15:42, No significant change was found Confirmed by GALDINO MARTINEZ ([id number]) on 06/06/2025 4:02:15 PM GEMUSE 06/05/2025 5:50 PM EDT 06/06/2025 4:02 PM EDT Rosa Maria AMAYA ECG ORDERABLES Final Re sult HIEN * POC , urine manually resulted (06/05/2025 5:25 PM EDT) Pathologist [facility] HCG, Ur POC Negative Negative Urine Urine specimen obtained by clean catch procedure / Unknown 06/05/2025 5:25 PM EDT Rosa Maria AMAYA POINT OF CARE TEST ENTER /EDIT ORDERABLES Final Result * (ABNORMAL) Urinalysis with reflex microscopic and culture (06/05/2025 5:21 PM EDT) Pathologist [facility] Specific [place] Urine 1.022 1.003 - 1.030 LAB URINALYSIS - AUTOMATED METHOD 06/05/2025 6:27 PM EDT [facility] pH, Urine 6.5 5.0 - 8.0 pH LAB URINALYSIS - AUTOMATED METHOD 06/05/2025 6:27 PM [facility] Leukocytes, Urine Large(A) Negative LAB URINALYSIS - AUTOMATED METHOD 06/05/2025 6:27 PM [facility] Nitrite, Urine Positive(A) Negative LAB URINALYSIS - AUTOMATED METHOD 06/05/2025 6:27 PM [facility] Protein, Urine 100(A) <=Trace mg/dL LAB URINALYSIS - AUTOMATED METHOD 06/05/2025 6:27 PM [facility] Glucose, Urine Negative Negative mg/dL LAB URINALYSIS - AUTOMATED METHOD 06/05/2025 6:27 PM [facility] Ketones, Urine Trace(A) Negative mg/dL LAB URINALYSIS - AUTOMATED METHOD 06/05/2025 6:27 PM [facility] Urobilinogen , Urine 1.0 0.2 - 1.0 mg/dL LAB URINALYSIS - AUTOMATED METHOD 06/05/2025 6:27 PM [facility] Bilirubin, Urine Negative Negative LAB URINALYSIS - AUTOMATED METHOD 06/05/2025 6:27 PM [facility] Blood, Urine Small(A) Negative LAB URINALYSIS - AUTOMATED METHOD 06/05/2025 6:27 PM [facility] RBC, Urine 5(H) 0 - 4 /HPF LAB URINALYSIS - AUTOMATED METHOD 06/05/2025 6:27 PM [facility] WBC, Urine 1,657.1(H) 0 - 4 /HPF LAB URINALYSIS - AUTOMATED METHOD 06/05/2025 6:27 PM [facility] Squamous Epithelial, Urine >100(H) 0 - 60 /LPF LAB URINALYSIS - AUTOMATED METHOD 06/05/2025 6:27 PM [facility] Bacteria, Urine Many(A) Negative /HPF LAB URINALYSIS - AUTOMATED METHOD 06/05/2025 6:27 PM EDT [facility] Hyaline Casts, Urine 10.3(H) 0 - 3 /LPF LAB URINALYSIS - AUTOMATED METHOD 06/05/2025 6:27 PM EDT [facility] Urine Urine specimen obtained by clean catch procedure / Unknown Non-blood Collection / Unknown 06/05/2025 5:21 PM EDT 06/05/2025 6:00 PM EDT us Timbo Orosco MD LAB URINE ORDERABLES Fin al Result Performing Organization Address [facility]/ZIP Co de Phone Number [facility] [address] [place] [address], [place] [phone] * Rogers urine culture tube (06/05/2025 5:21 PM EDT) Extra Tube Hold for add-ons. 06/05/2025 7:01 PM EDT [facility] Comment:Auto resulted. Urine Urine specimen obtained by clean catch procedure / Unknown Non-blood Collection / Unknown 06/05/2025 5:21 PM EDT 06/05/2025 6:00 PM EDT us Timbo Orosco MD LAB URINE ORDERABLES Fin al Result Performing Organization Address [facility] de Phone Number [facility] [address] [place] [address], [place] [phone] * (ABNORMAL) Culture urine (06/05/2025 5:21 PM EDT) Culture, Urine >=100,000 CFU/mL Klebsiella aerogenes(A) 06/08/2025 7:59 AM EDT [facility] Comment: This is an edited result. Previous organism was Gram negative bacilli on 06/06/2025 at 1059 EDT. Urine Urine specimen obtained by clean catch procedure / Unknown Non-blood Collection / Unknown 06/05/2025 5:21 PM EDT 06/05/2025 6:27 PM EDT Narrative Organism Antibiotic Method Susceptibility Klebsiella aerogenes Amikacin DISK DIFFUSION Susceptible Klebsiella aerogenes Amoxicillin/Clavulanate DISK DIFF USION Resistant Klebsiella aerogenes Ampicillin/Sulbactam DISK DIFFUSI ON Susceptible Klebsiella aerogenes Cefazolin DISK DIFFUSION Resistant Klebsiella aerogenes Cefepime DISK DIFFUSION Susceptible Klebsiella aerogenes Cefoxitin DISK DIFFUSION Resistant Klebsiella aerogenes Ceftazidime DISK DIFFUSION Susceptible Klebsiella aerogenes Ceftriaxone DISK DIFFUSION Susceptible Klebsiella aerogenes Ciprofloxacin DISK DIFFUSION Susceptible Klebsiella aerogenes Gentamicin DISK DIFFUSION Susceptible Klebsiella aerogenes Levofloxacin DISK DIFFUSION Susceptible Klebsiella aerogenes Meropenem DISK DIFFUSION Susceptible Klebsiella aerogenes Nitrofurantoin DISK DIFFUSION Susceptible Klebsiella aerogenes Piperacillin/Tazobactam DISK DIFF USION Susceptible Klebsiella aerogenes Trimethoprim/Sulfamethoxazole DIS K DIFFUSION Susceptible Timbo Orosco MD LAB MICROBIOLOGY - GENER AL ORDERABLES Final Result [facility] [address] [place] [address], [place] [phone] * (ABNORMAL) Drug abuse screen 8a panel, urine (06/05/2025 5:20 PM EDT) Amphetamine Screen, Ur Negative Negative LAB CHEMISTRY METHOD 5 6:33 PM EDT [facility] Comment:Certain OTC medicati ons containing ephedrine, phenylephrine, pseudoephedrine and phenylpropanolamine can cause false positive results. Barbiturate Screen, Ur Negative Negative LAB CHEMISTRY METHOD 5 6:33 PM EDT [facility] Benzodiazepine Screen, Ur Negative Negative LAB CHEMISTRY METHOD 5 6:33 PM EDT [facility] Cocaine Screen, Ur Positive(A ) Negative LAB CHEMISTRY METHOD 5 6:33 PM EDT [facility] Opiate Screen, Ur Negative Negative LAB CHEMISTRY METHOD 5 6:33 PM EDT [facility] Cannabinoid (THC) Screen, Ur Positive(A ) Negative LAB CHEMISTRY METHOD 5 6:33 PM EDT [facility] Comment:Specimens from patie nts taking pantoprazole sodium (Protonix) have been shown to produce false positive results. Oxycodone Screen, Ur Negative Negative LAB CHEMISTRY METHOD 6:33 PM EDT [facility] Fentanyl, Ur Negative Negative LAB CHEMISTRY METHOD 6:33 PM EDT [facility] Urine Urine specimen obtained by clean catch procedure / Unknown Non-blood Collection / Unknown 06/05/2025 5:20 PM EDT 06/05/2025 6:00 PM EDT [facility] - 06/05/2025 6:33 PM EDT Assay cutoffs: Amphetamines 1000 ng/mL Barbiturates 200 ng/mL Benzodiazepines 200 ng/mL Cocaine 300 ng/mL Fentanyl 1 ng/mL Opiates 300 ng/mL Oxycodone 100 ng/mL THC 50 ng/mL Semi-quantitative assay for screening purposes only. Unconfirmed screening result should not be used for non-medical purposes. *ALTERNATE METHOD CONFIRMATION DONE UPON REQUEST ONLY* Rosa Maria AMAYA LAB URINE ORDERABLES Fin al Result [facility] [address] [place] [address], * Buprenorphine screen, urine (06/05/2025 5:20 PM EDT) Buprenorphine Screen Urine Negative Negative LAB CHEMISTRY METHOD 06/05/2025 6:33 PM EDT [facility] Urine Urine specimen obtained by clean catch procedure / Unknown Non-blood Collection / Unknown 06/05/2025 5:20 PM EDT 06/05/2025 6:00 PM EDT [facility] - 06/05/2025 6:33 PM EDT Assay cutoff 5 ng/mL Semi-quantitative assay for screening purposes only. Unconfirmed screening result should not be used for non-medical purposes. *ALTERNATE METHOD CONFIRMATION DONE UPON REQUEST ONLY* Rosa Maria AMAYA LAB URINE ORDERABLES Fin al Result Performing Organization Address [facility] Co de Phone Number [facility] [address] [place] [address], [place] [phone] * Methadone, urine (06/05/2025 5:20 PM EDT) Methadone Screen, Urine Negative Negative LAB CHEMISTRY METHOD 06/05/2025 6:33 PM EDT [facility] Comment: Assay cutoff 300 ng/mL Semi-quantitative assay for screening purposes only. Unconfirmed screening result should not be used for non-medical purposes. *ALTERNATE METHOD CONFIRMATION DONE UPON REQUEST ONLY* Urine Urine specimen obtained by clean catch procedure / Unknown Non-blood Collection / Unknown 06/05/2025 5:20 PM EDT 06/05/2025 6:00 PM EDT Rosa Maria AMAYA LAB URINE ORDERABLES Fin al Result Performing Organization Address [facility] de Phone Number [facility] [address] [place] [address], [place] [phone] * Phencyclidine, urine (06/05/2025 5:20 PM EDT) PCP Scrn, Ur Negative Negative LAB CHEMISTRY METHOD 06/05/2025 6:33 PM EDT [facility] Comment: Assay cutoff 25 ng/mL Semi-quantitative assay for screening purposes only. Unconfirmed screening result should not be used for non-medical purposes. *ALTERNATE METHOD CONFIRMATION DONE UPON REQUEST ONLY* Urine Urine specimen obtained by clean catch procedure / Unknown Non-blood Collection / Unknown 06/05/2025 5:20 PM EDT 06/05/2025 6:00 PM EDT Rosa Maria AMAYA LAB URINE ORDERABLES Fin al Result Performing Organization Address [facility] Co de Phone Number [facility] [address] [place] [address], from Last 3 Months Insurance [employer] Care Teams Test Conductor Relationship Specialty Start Date End Date Sandi Adam MD [address] [place] [id number] PCP - General Internal Medicine 08/04/18
--- OUTSIDE RECORDS SUMMARY | 2025-06-24 11:30 | XMS_ITS | Patient Health Record ---
Author Organization [facility] Address [address] [place] [address] Care Team Providers Care Gopherman Name Role Phone NO, PCP Primary Care Provider Nelly Uriarte Unavailable Reason For Referral No Information Encounters Encounter Location Date Provider Diagnosis [facility] [address] [place], [place] [phone] 11/09/2024 Nelly Uriarte Plan Of Treatment No Information Insurance Providers Payer Name Payer Address Payer Phone Subscriber Number Group Number Insured Name Patient Relationship to Insured Coverage Start Date Coverage End Date Insurance - None Need to apply for insurance [id number] [place] [id number] Herlinda De La Vega Self - patient is the insured
[2025-06-24 11:48] LABS: Alanine Aminotransferase 9 U/L (0-31); Albumin Level 4.3 g/dL (3.5-5.0); Alkaline Phosphatase 61 U/L (39-117); Anion Gap 13 (12-20); Aspartate Amino Transferase 24 U/L (5-31); Blood Urea Nitrogen 9 mg/dL (9-16); Calcium 9.0 mg/dL (8.4-10.2); Carbon Dioxide 25 mmol/L (22-29); Chloride 106 mmol/L (96-108); Creatinine Clr Calc Pharmacy 98.6; Estimated Glomerular Filt Rate > 60; Potassium 3.4 mmol/L (3.3-5.1); Sodium 141 mmol/L (135-145); Total Protein 7.0 g/dL (6.5-8.0)
--- NOTE | 2025-06-24 16:55 | PC.NURSE ---
Pt has remained calm and resting in her room, she is tearful with this marketing underwriter stating she is homeless and has not been able to take her medications. she say s her SI comes and goes. she is medicated for a MORGAN and reports it resolved at this time.
[2025-06-24 20:58] VITALS: BP 74/58; PULSE 74; RESP 18; TEMP 37.4; O2SAT 100
--- NOTE | 2025-06-24 20:59 | PC.NURSE ---
PT noted to be hypertensive. Manual BP completed 74/58. Denies lightheadness or dizziness. Notified Dr. Hayden. Plan for PO fluids. PT given two cups of water states she is not able to tolerate too much po fluids due to hx of bariatric surgery. Updated Dr. Hayden. Plan of care ongoing
[2025-06-24 22:21] VITALS: BP 77/48; PULSE 48; RESP 16; O2SAT 100
--- NOTE | 2025-06-24 22:29 | ECG_ITS ---
Test Reason : HYPOTENSIVE Blood Pressure : */* mmHG Vent. Rate : 58 BPM Atrial Rate : 58 BPM P-R Int : 146 ms QRS Dur : 80 ms QT Int : 440 ms P-R-T Axes : 50 -3 15 degrees QTcB Int : 431 ms Sinus bradycardia with Premature ventricular complexes Possible Inferior infarct , age undetermined Abnormal ECG When compared with ECG of 20-Apr-2013 12:03, Premature ventricular complexes is now Present Referred By: Evelio Hayden Electronically Signed By: RAJENDRA FRYE MD
[2025-06-25] VITALS (15 sets, daily range): BP systolic 73–101; BP diastolic 35–60; PULSE 32–61; RESP 13–21; TEMP 36.6–36.9; O2SAT 99–100; BMI 29.3
--- NOTE | 2025-06-25 | ECG_ITS ---
Test Reason : BRADYCARDIA Blood Pressure : */* mmHG Vent. Rate : 62 BPM Atrial Rate : 62 BPM P-R Int : 166 ms QRS Dur : 82 ms QT Int : 424 ms P-R-T Axes : 34 -8 16 degrees QTcB Int : 430 ms Sinus rhythm with frequent Premature ventricular complexes Low voltage QRS Possible Inferior infarct (cited on or before 24-Jun-2025) Cannot rule out Anterior infarct , age undetermined Abnormal ECG When compared with ECG of 24-Jun-2025 22:37, No significant changes seen Aberrant conduction is no longer Present Referred By: Zac Hargrove Electronically Signed By: RAJENDRA FRYE MD
[2025-06-25 00:13] LABS: Troponin-I High Sensitivity 115.5 ng/L (<3.5-17.0)
[2025-06-25] MEDS: Lactated Ringers 1,000 ML 999 ML IV (00:49)
[2025-06-25 01:38] LABS: Reflex Lactate? Lactic Acid Added
[2025-06-25 03:31] LABS: ~Lactic Acid-LAB USE ONLY 1.2 mmol/L (0.5-2.0)
[2025-06-25 03:40] LABS: Troponin-I High Sensitivity 98.0 ng/L (<3.5-17.0)
[2025-06-25] MEDS: Albumin Human 25 % 50 ML 100 ML IV ×2 (06:56→07:44)
--- NOTE | 2025-06-25 07:34 | PC.NURSE ---
T/w received pt from the pod after having low BP 60/40's pt placed on monitor in plascencia bed and #20 placed in R-AC. Vitals remained low, troponin and lactic drawn. Pt received 4L IV fluids in total wih no improvement as well as midodrine 10mg. assumed care and obtained bedside ultrasound. Order for midodrine 5mg and IV albumin. Pt medicated and albumin runnng. Report given to oncoming BRIAN Camargo.
--- NOTE | 2025-06-25 11:16 | PM.IMHP ---
History of Present Illness Date of Service: 06/25/25 Attending physician on admission: Annabella Prabhakar Chief Complaint: SI This is a 45-year-old female who presents to the emergency department with SI. She reported feeling more down/suicidal lately and has been using more crack cocaine. Her tox screen was positive for cocaine. She was medically cleared and referred to the care team for psychiatric purposes. Overnight her blood pressure began trending down and was as low as 70s systolic. Troponin initially 115.5, repeat 98. Lactic acid 2.1, repeat 1.2. The remainder of her labs were unremarkable. No source of infection was identified. Patient has remained completely asymptomatic. She denies any chest pain, dizziness, shortness and breath. She has received 4 L of IV fluid, 2 doses of oral midodrine and albumin. Patient's blood pressure has trended up into the 90s systolic. Given persistently soft blood pressure the decision was made to admit her to the hospital for close monitoring. Of note patient reports that her blood pressure is ?always low?. However on arrival her blood pressure was 118/63. Review of Systems Review of Systems: Yes all other systems are reviewed and are negative Constitutional: Constitutional: Denies chills and Denies fever(s) Cardiovascular: Cardiovascular: Denies chest pain, Denies palpitations and Denies dyspnea Respiratory: Respiratory: Denies cough and Denies dyspnea Gastrointestinal: Gastrointestinal: Denies abdominal pain, Denies nausea and Denies vomiting Endocrine: Endocrine: Denies palpitations [facility] Medical History (Updated 06/25/25 @ 16:11 by MONIQUE Peters) Bipolar depression Social History Household Members: None Housing: Homeless Housing Other:: pt stated she sometimes stay with her mother, friend, or on street Do you presently have visiting nurse or other home services: No Patient Tobacco Use Status: Current someday Tobacco user Tobacco use type: Cigarette Cigarettes Per Day: 3 Years Smoked: 20 e-Cigarette/Vaping Use: Currently Using Second Hand Smoke Exposure: No Substance Use Type: Crack/Cocaine Meds Allergies Allergy/AdvReac Type Severity Reaction Status Date / Time No Known Allergies Allergy Verified 06/24/25 10:25 Active Medications: Current Medications Acetaminophen (Acetaminophen 325 Mg Tablet) 650 mg PO Q6H PRN PRN Reason: Pain, Mild 1-3,fever,headache Bupropion HCl (Bupropion Hcl 75 Mg Tablet) 75 mg PO DAILY [facility] Calcium Carbonate (Calcium Carbonate 750 Mg Tab.Chew) 750 mg PO Q4H PRN PRN Reason: Heartburn Enoxaparin Sodium (Enoxaparin Sodium 40 Mg/0.4 Ml Syringe) 40 mg SUBCUT Q24H ED Hydroxyzine HCl (Hydroxyzine Hcl 50 Mg Tablet) 50 mg PO BID PRN PRN Reason: Anxiety Lactated Ringer's (Lr) 1,000 mls @ 125 mls/hr IVCONT .Q8H ED Magnesium Hydroxide (Milk Of Magnesia 30 Ml Oral.Susp) 30 ml PO DAILY PRN PRN Reason: Constipation Melatonin (Melatonin 3 Mg Tablet) 6 mg PO BEDTIME PRN PRN Reason: Insomnia Nicotine Polacrilex (Nicotine Polacrilex 2 Mg Gum) 4 mg BUCCAL Q4H PRN PRN Reason: Nicotine Cravings Sodium Chloride (0.9 % Sodium Chloride Flush 3 Ml Syringe) 3 ml IVFLUSH QSHIFT ED Trazodone HCl (Trazodone Hcl 50 Mg Tablet) 50 mg PO BEDTIME [facility] Last Admin: 06/24/25 20:34 Dose: 50 mg Home Medications ?Medication ?Instructions ?Recorded ?Confirmed ?Last Taken ?Type bupropion HCl 75 mg tablet 75 mg PO DAILY 06/24/25 06/24/25 Unknown History hydroxyzine HCl 50 mg tablet 50 mg PO BID PRN Anxiety 06/24/25 06/24/25 Unknown History ibuprofen 600 mg tablet 600 mg PO BID PRN pain 06/24/25 06/24/25 Unknown History nicotine (polacrilex) 4 mg gum 4 mg PO Q4H PRN Nicotine Cravings 06/24/25 06/24/25 Unknown History trazodone 50 mg tablet 50 mg PO BEDTIME 06/24/25 06/24/25 Unknown History Physical Exam Vital Signs and Narrative: Vital Signs: Last Vital Signs Temp 99.3 F 06/24/25 20:58 Pulse 52 06/25/25 10:33 Resp 18 06/25/25 10:33 BP 93/42 L 06/25/25 10:33 Pulse Ox 100 06/24/25 22:21 O2 Del Method Room Air 06/25/25 03:17 BMI result Body Mass Index 28.1 Const: General: cooperative, comfortable, no acute distress, alert and awake Nutritional Appearance: average body habitus Orientation/consciousness: patient oriented x3 Resp: Effort & Inspection: normal respiratory effort, able to speak in complete sentences, no respiratory distress and no use of accessory muscles Auscultation: clear to auscultation bilaterally Cardio: Rate: regular rate GI: Inspection: No distended Palpation (GI): Soft to palpation Neuro: General: patient oriented x3, moves all extremities and CN's II-XI intact bilaterally Extrem: General: No pedal edema Results Labs 06/24/25 11:10 06/25/25 20:38 Labs: Laboratory Results - last 24 hr 06/24/25 06/24/25 06/24/25 10:48 11:10 23:32 MCV 82.4 MCH 27.2 MCHC 33.0 RDW 13.7 Plt Count 286 MPV 9.4 Immature Gran % (Auto) 0.6 H Neut % (Auto) 77.8 H Lymph % (Auto) 13.4 L [place] % (Auto) 7.1 Eos % (Auto) 0.6 Baso % (Auto) 0.5 Lymph # (Auto) 0.9 L [place] # (Auto) 0.5 Eos # (Auto) 0.0 Baso # (Auto) 0.0 Abs Immat Gran (auto) 0.04 H Absolute Neuts (auto) 5.1 Absolute Nucleated RBC 0.000 Nucleated RBC % (auto) 0.0 Anion Gap 13 Estim Creat Clear Calc 98.6 Estimated GFR > 60 Random Glucose 86 Lactic Acid 2.1 H* Lactic Acid F/U @ 2Hr Calcium 9.0 Total Bilirubin 0.6 AST 24 ALT 9 Alkaline Phosphatase 61 Total Protein 7.0 Albumin 4.3 Urine Opiates Screen Not Detected Ur Buprenorphine Scrn Not Detected Ur Oxycodone Screen Not Detected Urine Methadone Screen Not Detected Urine Fentanyl Screen Not Detected Ur Barbiturates Screen Not Detected Ur Phencyclidine Scrn Not Detected Ur Amphetamines Screen Not Detected U Benzodiazepines Scrn Not Detected Urine Cocaine Screen POSITIVE H U Marijuana (THC) Screen POSITIVE H Ethyl Alcohol < 10 06/25/25 03:02 MCV MCH MCHC RDW Plt Count MPV Immature Gran % (Auto) Neut % (Auto) Lymph % (Auto) Spalding % (Auto) Eos % (Auto) Baso % (Auto) Lymph # (Auto) Sp[place]ding # (Auto) Eos # (Auto) Baso # (Auto) Abs Immat Gran (auto) Absolute Neuts (auto) Absolute Nucleated RBC Nucleated RBC % (auto) Anion Gap Estim Creat Clear Calc Estimated GFR Random Glucose Lactic Acid Lactic Acid F/U @ 2Hr 1.2 Calcium Total Bilirubin AST ALT Alkaline Phosphatase Total Protein Albumin Urine Opiates Screen Ur Buprenorphine Scrn Ur Oxycodone Screen Urine Methadone Screen Urine Fentanyl Screen Ur Barbiturates Screen Ur Phencyclidine Scrn Ur Amphetamines Screen U Benzodiazepines Scrn Urine Cocaine Screen U Marijuana (THC) Screen Ethyl Alcohol Assessment and Plan (1) Lactic acidosis: Status: Acute (2) Crack cocaine use: Status: Acute Plan This is a 45-year-old female with a history of bipolar depression, crack cocaine use who presents to the emergency department with suicidal ideation with plan for admission to inpatient psych and subsequently developed hypo tension Hypotension Likely due to volume depletion in the setting of active drug use IV fluid Monitor blood pressure Elevated cardiac enzymes Likely secondary to demand in the setting of cocaine use No chest pain Tele monitoring Acute lactic acidosis No fever, leukocytosis. No evidence of infection Secondary to decreased perfusion in the setting of cocaine use SI planned for inpatient psych admission until bp went down will need care team re-evaluation prior to discharge Sitter for safety Mood disorder No longer taking medication DVT prophylaxis-Lovenox Patient will likely require 2 midnight stay in the hospital for monitoring of hypotension Quality Stroke Does the patient have a stroke diagnosis?: No VTE Prior VTE?: No VTE Risk Level:: Medical - moderate - high VTE Device Contraindication: N/A - Device Ordered VTE Drug Contraindication: N/A - Med Ordered
[2025-06-25] MEDS: Lactated Ringers 1,000 ML 125 ML IVCONT ×2 (11:36→19:25)
--- NOTE | 2025-06-25 11:37 | PHA.MEDREC ---
Addendum entered by Justice Gaines PharmD 06/25/25 11:40: reviewed Original Note: Pharmacy Consult ? Medication Reconciliation Pharmacy has reviewed the medication reconciliation done by nursing. Claims match med list.
--- NOTE | 2025-06-25 17:29 | PC.NURSE ---
pt continues to be hypotensive thorough shift today. Her BPs fluctuate between high 90s systolic to mid 80s systolic. She denies symptoms. Denies dizziness, vision changes, headache, sob, cp. She is AOx4, ambulates well and denies pain. admitted to hospital for hypotension. LR infusing 125/hr.
--- NOTE | 2025-06-25 19:18 | PC.NURSE ---
this RN assumed care of this pt @1900, pt resting quietely in hospital stretcher, sitter at the bedside, pt appears to be in no apparent distress at this time, LR running @125mL/hr
--- NOTE | 2025-06-25 20:07 | PC.NURSE ---
pt HR noted to be 32 on the monitor, pt asymptomatic, denies CP/SOB/dizziness, BP 92/47 pt states her BP is always low, provider Rigo Marino made aware plan for EKG, CXR, evaluate troponin, and hold 2100 trazadone to prevent further bradycardia, plan of care ongoing
[2025-06-25 20:38] LABS: Thyroid Stimulating Hormone 2.09 uIU/mL (0.32-4.0)
[2025-06-25 21:05] LABS: Anion Gap 11 (12-20); Blood Urea Nitrogen 11 mg/dL (9-16); Calcium 8.2 mg/dL (8.4-10.2); Carbon Dioxide 25 mmol/L (22-29); Chloride 111 mmol/L (96-108); Creatinine Clr Calc Pharmacy 69.9; Estimated Glomerular Filt Rate 58; Potassium 4.2 mmol/L (3.3-5.1); Sodium 143 mmol/L (135-145)
[2025-06-25 21:15] LABS: Troponin-I High Sensitivity 73.9 ng/L (<3.5-17.0)
[2025-06-25 21:18] LABS: Magnesium 1.9 mg/dL (1.6-2.6)
[2025-06-26 03:09] VITALS: BP 117/55; PULSE 50; RESP 18; TEMP 36.6; O2SAT 98
[2025-06-26] MEDS: Lactated Ringers 1,000 ML 125 ML IVCONT ×3 (03:53→23:33)
--- NOTE | 2025-06-26 07:00 | CA_ITS ---
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 Normal LV ejection fraction of 60 65% 2. Mild biatrial enlargement 3. Normal RV systolic pressure with mildly elevated right atrial pressures 4. Normal cardiac valvular Dopplers 5. No gross pericardial effusion Findings Left Ventricle Normal left ventricular size, thickness, and systolic function. The visually estimated ejection fraction is between 60-65%. Diastolic function is normal for age. Right Ventricle Normal right ventricular cavity size and systolic function. Atria Mild biatrial enlargement. There is a mobile atrial septum noted. Interatrial shunt cannot be excluded. Aortic Valve Normal aortic valve structure and function. There is no aortic valve stenosis. There is no aortic valve regurgitation. Mitral Valve Normal mitral valve structure and function. There is trace mitral valve regurgitation. There is no mitral valve stenosis. Pulmonic Valve The pulmonic valve is likely normal. There is trace pulmonic valve regurgitation. Tricuspid Valve Normal tricuspid valve structure. There is mild tricuspid valve regurgitation. The right ventricular systolic pressure is normal. The right ventricular systolic pressure is 27 mmHg. Mildly elevated right atrial pressure. There is no evidence of pulmonary hypertension. Great Vessels All visible segments of the aorta are normal in size. The pulmonary artery was not well visualized. There is no dilatation of the ascending aorta measuring 2.50 cm. Venous The inferior vena cava is moderately dilated and collapses greater than 50% with inspiration. Pericardium/Pleural There is no evidence of pericardial effusion. Prior Study Comparison No prior study available for comparison. Measurements 2D Linear Measurements IVSd: 1.06 0.6-0.9/0.6-1.0 cm LVIDd: 4.78 3.9-5.3/4.2-5.9 cm LVIDd Index: 2.56 2.4-3.2/2.2-3.1 cm/m2 LVIDs: 3.15 2.0-3.6 cm LVPWd: 0.94 0.7-1.1 cm Ao Root: 2.80 2.1-3.5 cm LA Diam: 4.00 2.7-3.8/3.0-4.0 cm LAIDs Index: 2.14 1.5-2.3 cm/m2 LV Mass: 210.55 67-162/88-224 g LV Mass Index: 112.59 43-95/49-115 g/m2 LVOT Diam: 1.90 3.0+(-)1.3 cm 2D Systolic Function EF 4C: 56.00 >55% EF 2C: 65.70 >55% EF BiP: 60.50 >55% Mitral Valve MV Pk E: 0.99 MV PK A: 0.75 MV Decel Time: 214.00 E/A: 1.30 E'Lateral: 12.10 E'Medial: 9.68 E/E' Med: 10.20 E/E' Lat: 8.10 PHT: 63.00 MVA PHT: 3.49 Decel Geary: 4.61 Aortic Valve AoV Pk Gregor: 1.46 AoV Mn Gregor: 1.01 AoV VTI: 0.36 AoV Pk Grad: 9.00 Aov Mn Grad: 5.00 MAI Cont.VTI: 2.06 LVOT LVOT Pk Gregor: 1.17 LVOT Mn Gregor: 0.80 LVOT VTI: 0.26 LVOT Pk Grad: 5.00 LVOT Mn Grad: 3.00 LVOT Diam: 1.90 LVOT Area: 2.84 Diastolic Function MV Pk E: 0.99 MV Pk A: 0.75 E/A: 1.30 E'Medial: 9.68 E/E' Med: 10.20 E' Laterial: 12.10 E/E' Lat: 8.10 Right Ventricle TAPSE (mm): 29.50 Tricuspid Valve TR Pk Gregor: 2.19 TR Pk Grad: 19.00 RA Press: 8.00 RVSP: 27.00 Great Vessels Aorta Ao Root-2D: 2.80 2.0-3.7 cm Sinus of Valsalva: 2.80 2.0-3.5 cm Ao Asc: 2.50 2.1-3.4 cm Pulmonary Veins Pulm Vein S/D 1.50 Pulmonary Valve PV Pk Gregor: 1.01 Peak PV Grad: 4.00 Updated in Other Vendor System with Status of Final Bipin Acevedo MD electronically signed on 06/26/2025 3:26:08 PM with status of Final
[2025-06-26 08:00] VITALS: BP 92/50; PULSE 50; RESP 18; TEMP 36.7; O2SAT 98
--- NOTE | 2025-06-26 10:59 | HO.PM.IMPN ---
Subjective Subjective Date of Service: 06/26/25 Interval History: admits SI denies chest pain or lightheadedness Review of Systems Review of Systems: Yes all other systems are reviewed and are negative Physical Exam Vital Signs: Vital Signs: Last Vital Signs Temp 98.0 F 06/26/25 08:00 Pulse 50 06/26/25 08:00 Resp 18 06/26/25 08:00 BP 92/50 L 06/26/25 08:00 Pulse Ox 98 06/26/25 08:00 O2 Del Method Room Air 06/26/25 08:00 BMI result Body Mass Index 29.3 Gen: in no acute distress HEENT: sclera anicteric, moist mucus membranes Neck: supple Lungs: clear to auscultation bilaterally Heart: regular rate and rhythm, no murmurs Abd: soft, non-tender, non-distended Ext: no edema Skin: warm/well-perfused Neuro: alert and oriented x3, no focal findings Psych: appropriate affect Objective Data Active Medications Acetaminophen (Acetaminophen 325 Mg Tablet) 650 mg PO Q6H PRN PRN Reason: Pain, Mild 1-3,fever,headache Last Admin: 06/25/25 19:06 Dose: 650 mg Documented By: NEDRA Bupropion HCl (Bupropion Hcl 75 Mg Tablet) 75 mg PO DAILY [facility] Last Admin: 06/26/25 08:54 Dose: 75 mg Documented By: MYRNA Calcium Carbonate (Calcium Carbonate 750 Mg Tab.Chew) 750 mg PO Q4H PRN PRN Reason: Heartburn Enoxaparin Sodium (Enoxaparin Sodium 40 Mg/0.4 Ml Syringe) 40 mg SUBCUT Q24H [facility] Last Admin: 06/25/25 11:36 Dose: Not Given Documented By: NEDRA Non-Admin Reason: Patient Refused Hydroxyzine HCl (Hydroxyzine Hcl 50 Mg Tablet) 50 mg PO BID PRN PRN Reason: Anxiety Lactated Ringer's (Lr) 1,000 mls @ 125 mls/hr IVCONT .Q8H [facility] Last Admin: 06/26/25 03:53 Dose: 125 mls/hr Documented By: OJE Magnesium Hydroxide (Milk Of Magnesia 30 Ml Oral.Susp) 30 ml PO DAILY PRN PRN Reason: Constipation Melatonin (Melatonin 3 Mg Tablet) 6 mg PO BEDTIME PRN PRN Reason: Insomnia Nicotine Polacrilex (Nicotine Polacrilex 2 Mg Gum) 4 mg BUCCAL Q4H PRN PRN Reason: Nicotine Cravings Sodium Chloride (0.9 % Sodium Chloride Flush 3 Ml Syringe) 3 ml IVFLUSH QSHIFT ED Last Admin: 06/26/25 09:02 Dose: Not Given Documented By: MYRNA Non-Admin Reason: IV Running Trazodone HCl (Trazodone Hcl 50 Mg Tablet) 50 mg PO BEDTIME ED On Hold: 06/25/25 19:57 Last Admin: 06/24/25 20:34 Dose: 50 mg Documented By: GARTH Labs 06/24/25 11:10 06/25/25 20:38 Labs: Laboratory Results - last 24 hr 06/25/25 06/25/25 03:02 20:38 Anion Gap 11 L Estim Creat Clear Calc 69.9 Estimated GFR 58 Random Glucose 87 Calcium 8.2 L D Magnesium 1.9 TSH 2.09 Assessment and Plan (1) Crack cocaine use: Status: Acute (2) Suicidal ideation: Status: Acute Plan d2, 45yo F with mood disorder + cocaine abuse presenting with SI, was awaiting psychiatry placement but developed hypotension, found to have elevated troponin hypotension troponin elevation acute lactic acidosis, resolved - no signs of infection or angina; concern for other substances mixed with cocaine [metetomidine?]; TTE + Cardiology consultation cocaine abuse - Addiction Medicine, HBV/HCV/HIV screen SI - inpatient psychiatry after medically cleared tobacco abuse - NRT, counseling mood disorder - bupropion VTE ppx - enoxaparin dispo - inpt psych In my clinical judgment, the patient requires continued inpatient hospitalization for the following reasons: hypotension workup Total time managing care of this patient today: 35 minutes. Quality Stroke Does the patient have a stroke diagnosis?: No VTE Prior VTE?: No VTE Risk Level:: Medical - moderate - high VTE Device Contraindication: N/A - Device Ordered VTE Drug Contraindication: N/A - Med Ordered
--- NOTE | 2025-06-26 11:22 | PM.CNCAR ---
History of Present Illness History of Present Illness Date of Service: 06/26/25 Requesting physician: Annabella Prabhakar Consult reason: hypotension and troponin elevation Chief complaint: hypotension, SI Narrative: I was consulted to see Herlinda in cardiology consultation today for low blood pressure as well as elevated troponins. Herlinda is a 45 year female with prior history of mental health disorder came to the hospital with suicidal ideation increased use of crack cocaine as outpatient. When patient came in she was noted to have low blood pressure and elevated lactic acid. The no obvious source for sepsis infection was found and was felt that the lactic acid elevation was from poor perfusion with low blood pressure issues as well as cocaine use and tissue hypoxemia. Patient also had troponin done which was slightly elevated and round testing. She did not report any chest pain although blood pressure is significantly low in the systolic 70 range and despite that she does not have any syncopal episodes at home. She does attribute orthostatic lightheadedness occasionally. She says a blood pressures always has been low in the 90s. She is on multiple psychoactive medications. She does not have any exertional chest pain or shortness of breath. She denies any palpitations. She attributes to overall poor oral intake of fluids. Review of Systems Constitutional: Constitutional: Reports no additional constitutional complaints Eyes: Eyes: Reports no additional eye complaints Cardiovascular: Cardiovascular: Denies chest pain, Denies rapid heart rate, Reports lightheadedness, Denies Loss of Consciousness, Denies palpitations, Denies dyspnea and Denies dyspnea on exertion Respiratory: Respiratory: Denies no additional respiratory complaints, Denies dyspnea and Denies dyspnea on exertion Gastrointestinal: Gastrointestinal: Denies no additional gastrointestinal complaints Genitourinary: Genitourinary: Denies no additional female genitourinary complaints Musculoskeletal: Musculoskeletal: Denies no additional musculoskeletal complaints Integumentary/Breasts: Skin/Breast: Denies system reviewed and no additional complaints, except as docu Neurologic: Denies system reviewed and no additional complaints, except as documented Endocrine: Endocrine: Denies palpitations PMFSH Past Medical History Medical History (Updated 06/26/25 @ 11:26 by Bipin Acevedo MD) Bipolar depression Social History Social History Household Members: None Housing: Homeless Housing Other:: pt stated she sometimes stay with her mother, friend, or on street Do you presently have visiting nurse or other home services: No Patient Tobacco Use Status: Current someday Tobacco user Tobacco use type: Cigarette Cigarettes Per Day: 3 Years Smoked: 20 e-Cigarette/Vaping Use: Currently Using Second Hand Smoke Exposure: No Substance Use Type: Crack/Cocaine Meds Allergies Allergy/AdvReac Type Severity Reaction Status Date / Time No Known Allergies Allergy Verified 06/24/25 10:25 Active Medications: Current Medications Acetaminophen (Acetaminophen 325 Mg Tablet) 650 mg PO Q6H PRN PRN Reason: Pain, Mild 1-3,fever,headache Last Admin: 06/25/25 19:06 Dose: 650 mg Bupropion HCl (Bupropion Hcl 75 Mg Tablet) 75 mg PO DAILY [facility] Last Admin: 06/26/25 08:54 Dose: 75 mg Calcium Carbonate (Calcium Carbonate 750 Mg Tab.Chew) 750 mg PO Q4H PRN PRN Reason: Heartburn Enoxaparin Sodium (Enoxaparin Sodium 40 Mg/0.4 Ml Syringe) 40 mg SUBCUT Q24H [facility] Last Admin: 06/25/25 11:36 Dose: Not Given Hydroxyzine HCl (Hydroxyzine Hcl 50 Mg Tablet) 50 mg PO BID PRN PRN Reason: Anxiety Lactated Ringer's (Lr) 1,000 mls @ 125 mls/hr IVCONT .Q8H [facility] Last Admin: 06/26/25 03:53 Dose: 125 mls/hr Magnesium Hydroxide (Milk Of Magnesia 30 Ml Oral.Susp) 30 ml PO DAILY PRN PRN Reason: Constipation Melatonin (Melatonin 3 Mg Tablet) 6 mg PO BEDTIME PRN PRN Reason: Insomnia Nicotine Polacrilex (Nicotine Polacrilex 2 Mg Gum) 4 mg BUCCAL Q4H PRN PRN Reason: Nicotine Cravings Sodium Chloride (0.9 % Sodium Chloride Flush 3 Ml Syringe) 3 ml IVFLUSH QSHIFT [facility] Last Admin: 06/26/25 09:02 Dose: Not Given Trazodone HCl (Trazodone Hcl 50 Mg Tablet) 50 mg PO BEDTIME [facility] On Hold: 06/25/25 19:57 Last Admin: 06/24/25 20:34 Dose: 50 mg Home Medications ?Medication ?Instructions ?Recorded ?Confirmed ?Last Taken ?Type bupropion HCl 75 mg tablet 75 mg PO DAILY 06/24/25 06/24/25 Unknown History hydroxyzine HCl 50 mg tablet 50 mg PO BID PRN Anxiety 06/24/25 06/24/25 Unknown History ibuprofen 600 mg tablet 600 mg PO BID PRN pain 06/24/25 06/24/25 Unknown History nicotine (polacrilex) 4 mg gum 4 mg PO Q4H PRN Nicotine Cravings 06/24/25 06/24/25 Unknown History trazodone 50 mg tablet 50 mg PO BEDTIME 06/24/25 06/24/25 Unknown History Physical Exam Vital Signs: Vital Signs: Last Vital Signs Temp 98.0 F 06/26/25 08:00 Pulse 50 06/26/25 08:00 Resp 18 06/26/25 08:00 BP 92/50 L 06/26/25 08:00 Pulse Ox 98 06/26/25 08:00 O2 Del Method Room Air 06/26/25 08:00 BMI result Body Mass Index 29.3 Const: General: cooperative, comfortable, no acute distress, alert and awake Nutritional Appearance: overweight Orientation/consciousness: patient oriented x3 Limitations: no limitations HEENT: Head: Yes normocephalic and Yes atraumatic Neck: Neck: Yes trachea midline, Yes supple and Yes no JVD Resp: Effort & Inspection: normal respiratory effort Auscultation: clear to auscultation bilaterally Cardio: Jugular venous distension: no JVD Rate: regular rate Rhythm: regular rhythm Heart sounds: S1 normal heart sound present, S2 normal heart sound present, no click, no gallops and no murmurs GI: Auscultation: normal bowel sounds Skin: General skin exam: no rashes or lesions noted Neuro: General: patient oriented x3 and no focal motor deficits Extrem: General: Yes no clubbing, cyanosis or edema Objective Labs and Meds 06/24/25 11:10 06/25/25 20:38 Lab results: Laboratory Results - last 24 hr 06/25/25 06/25/25 03:02 20:38 Sodium 143 Potassium 4.2 D Chloride 111 H Carbon Dioxide 25 Anion Gap 11 L BUN 11 Creatinine 1.03 Estim Creat Clear Calc 69.9 Estimated GFR 58 Random Glucose 87 Calcium 8.2 L D Magnesium 1.9 Troponin I High Sens 73.9 H* TSH 2.09 Assessment and Plan (1) Hypotension: Qualifiers: Hypotension type: other hypotension type Qualified Code(s): I95.89 - Other hypotension Status: Acute Patient presented with suicide ideation with no symptoms from cardiac perspective with no symptoms of syncope. Noted to have low blood pressure as well as elevated lactic acid. There were no evidence of sepsis. Patient has been hydrated and blood pressures improved although remains on low side with systolic blood pressure of 90. She has no symptoms related to it. She says a blood pressure often as outpatient in his low. She does attribute to orthostatic lightheadedness occasionally. She has poor overall water intake as outpatient. She had also on psychoactive medications that can promote orthostatic low blood pressures. Recommend her to increase her fluid and salt intake. If despite that she remains persistently symptomatic as outpatient or has orthostatic low blood pressure can consider vasoconstrictors such as midodrine. I think her medications from mental had perspective are necessary aspect of her treatment. (2) Elevated troponin: Status: Acute Minimally elevated troponin with downtrending troponin in the setting of low blood pressure could represent second-degree myocardial damage due to low perfusion and/or due to cocaine use with coronary vaso spasm. Recommend echocardiogram. No specific treatment recommended unless there is significant abnormality on the echocardiogram. Less likely that this could represent stress-induced cardiomyopathy. Will sign of the case. Thank you for allowing me to partake in her care Procedures Date of Service Date of Service: 06/26/25
[2025-06-26 11:57] VITALS: BP 96/53; PULSE 65; RESP 20; TEMP 36.8; O2SAT 99
--- NOTE | 2025-06-26 12:36 | MHC.CM.PN ---
PT REPORTS SHE IS HOMELESS AND STAYS EITHER WITH HER MOTHER OR A FRIEND MOST OF THE TIME, BUT SOMETIMES ON THE STREET SHE IS NOT CONNECTED TO ANY COMMUNITY PROGRAMS AND DOES NOT USE DME SHE DECLINES A HCP SHE HAS A PCP, [facility], BUT SAYS SHE HAS NOT BEEN FOR SOME TIME DCP TBD PENDING CARE AND RECOVERY TEAM CONSULTS, IPLOC VS [facility] TREATMENT PROGRAM
[2025-06-26 15:31] VITALS: BP 89/55; PULSE 63; RESP 19; TEMP 36.8; O2SAT 100
[2025-06-26 20:00] VITALS: BP 87/60; PULSE 65; RESP 16; TEMP 37.2; O2SAT 99
[2025-06-26 23:30] VITALS: BP 98/60; PULSE 53; RESP 18; TEMP 36.8; O2SAT 100
[2025-06-27 03:55] VITALS: BP 96/60; PULSE 53; RESP 18; TEMP 36.8; O2SAT 100
[2025-06-27 08:00] VITALS: BP 104/56; PULSE 54; RESP 18; TEMP 36.3; O2SAT 99
[2025-06-27] MEDS: Lactated Ringers 1,000 ML 125 ML IVCONT (08:33)
--- NOTE | 2025-06-27 09:57 | MHC.CARE ---
Pt will be an inpatient bedsearch.
--- NOTE | 2025-06-27 11:10 | P.DS_ITS ---
DS: Providers Provider Date of Service: 06/27/25 Date of admission: 06/25/25 11:15 Date of discharge: 06/27/25 Primary care physician: Sandi Adam MD Consults: 06/24/25 10:46 ED CARE Team Crisis Consult Stat Comment: Reason for consultation: SI 06/25/25 11:37 Consult for Sitter Routine Reason for consultation: SI Has provider been notified: No 06/25/25 19:56 Consult to Cardiology Routine Consulting Provider: [facility] Reason for consultation: Elevated troponin, bradycardia, hypotension Has provider been notified: No 06/26/25 07:12 Addiction Medicine Provider Routine Consulting Provider: Addiction Covering Reason for consultation: cocaine 06/27/25 08:09 Inpt CARE Team Crisis Consult Routine Comment: Reason for consultation: suicidal ideation, medically cleared, resume bed search DS: Diagnosis Discharge Diagnosis (1) Hypotension: Status: Acute (2) Elevated troponin: Status: Acute (3) Crack cocaine use: Status: Acute (4) Suicidal ideation: Status: Acute (5) Lactic acidosis: Status: Acute DS: Summary Hospital Course Hospital Course: From the history and physical by the admitting hospitalist, MONIQUE Cole, 06/25/25: This is a 45-year-old female who presents to the emergency department with SI. She reported feeling more down/suicidal lately and has been using more crack cocaine. Her tox screen was positive for cocaine. She was med ically cleared and referred to the care team for psychiatric purposes. Overnight her blood pressure began trending down and was as low as 70s systolic. Troponin initially 115.5, repeat 98. Lactic acid 2.1, repeat 1.2. The remainder of her labs were unremarkable. No source of infection was identified. Patient has remained completely asymptomatic. She denies any chest pain, dizziness, shortness and breath. She has received 4 L of IV fluid, 2 doses of oral midodrine and albumin. Patient's blood pressure has trended up into the 90s systolic. Given persistently soft blood pressure the decision was made to admit her to the hospital for close monitoring. Of note patient reports that her blood pressure is ?always low?. However on arrival her blood pressure was 118/63. 45yo F with mood disorder + cocaine abuse presenting with SI, was awaiting psychiatry placement but developed hypotension, found to have elevated troponin and instead admitted to the medical service with Cardiology consultation due to hypotension and troponin elevation. No signs of infection and no angina. She was given IV hydration. Echocardiogram 06/26/25: 1. Normal LV ejection fraction of 60 65% 2. Mild biatrial enlargement 3. Normal RV systolic pressure with mildly elevated right atrial pressures 4. Normal cardiac valvular Dopplers 5. No gross pericardial effusion Blood pressures improved and she was counseled to drink plenty of fluids and eat plenty of salt. Minimally elevated troponin with downtrending troponin in the setting of low blood pressure could represent second-degree myocardial damage due to low perfusion and/or due to cocaine use with coronary vasospasm. No specific therapy other than cocaine abstinence recommended. She was transferred to inpatient psychiatry for ongoing psychaitric care due to suicidality. Time Attestation Discharge Coordination Time (in mins): 35 Quality: Safe Use of Opioids Does Pt have an Active Cancer Diagnosis on the Problem List?: No Quality: Stroke Does the patient have a stroke diagnosis?: No Physical Exam Vital Signs: Vital Signs: Last Vital Signs Temp 97.3 F 06/27/25 08:00 Pulse 54 06/27/25 08:00 Resp 18 06/27/25 08:00 BP 104/56 L 06/27/25 08:00 Pulse Ox 99 06/27/25 08:00 O2 Del Method Room Air 06/27/25 08:00 BMI result Body Mass Index 29.3 Gen: in no acute distress HEENT: sclera anicteric, moist mucus membranes Neck: supple Lungs: clear to auscultation bilaterally Heart: regular rate and rhythm, no murmurs Abd: soft, non-tender, non-distended Ext: no edema Skin: warm/well-perfused Neuro: alert and oriented x3, no focal findings Psych: restricted affect DS: Data Data Completed and Pending Completed studies during hospitalization [Text1]: Laboratory Results WBC 6.5 X10*3/uL (4.8-10.8) 06/24/25 11:10 RBC 3.97 X10*6/uL (4.20-5.50) L 06/24/25 11:10 Hgb 10.8 g/dl (12.0-16.0) L 06/24/25 11:10 Hct 32.7 % (37.0-47.0) L 06/24/25 11:10 MCV 82.4 fL (80.0-98.0) 06/24/25 11:10 MCH 27.2 pg (27.0-33.0) 06/24/25 11:10 MCHC 33.0 g/dl (31.0-35.0) 06/24/25 11:10 RDW 13.7 % (11.0-16.0) 06/24/25 11:10 Plt Count 286 X10*3/uL (160-400) 06/24/25 11:10 MPV 9.4 fL (9.4-12.3) 06/24/25 11:10 Immature Gran % (Auto) 0.6 % (0.0-0.4) H 06/24/25 11:10 Neut % (Auto) 77.8 % (45-73) H 06/24/25 11:10 Lymph % (Auto) 13.4 % (20-40) L 06/24/25 11:10 Archuleta % (Auto) 7.1 % (2-11) 06/24/25 11:10 Eos % (Auto) 0.6 % (0-4) 06/24/25 11:10 Baso % (Auto) 0.5 % (0-2) 06/24/25 11:10 Lymph # (Auto) 0.9 X10*3/uL (1.2-4.9) L 06/24/25 11:10 Archuleta # (Auto) 0.5 X10*3/uL (0.1-1.2) 06/24/25 11:10 Eos # (Auto) 0.0 X10*3/uL (0.0-0.4) 06/24/25 11:10 Baso # (Auto) 0.0 X10*3/uL (0.0-0.2) 06/24/25 11:10 Abs Immat Gran (auto) 0.04 X10*3/uL (0.00-0.03) H 06/24/25 11:10 Absolute Neuts (auto) 5.1 x10*3/uL (2.0-8.3) 06/24/25 11:10 Absolute Nucleated RBC 0.000 X10*3/uL (0.0-0.012) 06/24/25 11:10 Nucleated RBC % (auto) 0.0 /100WBC (0.0-0.2) 06/24/25 11:10 Sodium 143 mmol/L (135-145) 06/25/25 20:38 Potassium 4.2 mmol/L (3.3-5.1) D 06/25/25 20:38 Chloride 111 mmol/L (96-108) H 06/25/25 20:38 Carbon Dioxide 25 mmol/L (22-29) 06/25/25 20:38 Anion Gap 11 (12-20) L 06/25/25 20:38 BUN 11 mg/dL (9-16) 06/25/25 20:38 Creatinine 1.03 mg/dL (0.5-1.4) 06/25/25 20:38 Estim Creat Clear Calc 69.9 06/25/25 20:38 Estimated GFR 58 06/25/25 20:38 Random Glucose 87 mg/dL (60-115) 06/25/25 20:38 Lactic Acid 2.1 mmol/L (0.5-2.0) H* 06/24/25 23:32 Lactic Acid F/U @ 2Hr 1.2 mmol/L (0.5-2.0) 06/25/25 03:02 Calcium 8.2 mg/dL (8.4-10.2) L D 06/25/25 20:38 Magnesium 1.9 mg/dL (1.6-2.6) 06/25/25 20:38 Total Bilirubin 0.6 mg/dL (0.0-1.0) 06/24/25 11:10 AST 24 U/L (5-31) 06/24/25 11:10 ALT 9 U/L (0-31) 06/24/25 11:10 Alkaline Phosphatase 61 U/L (39-117) 06/24/25 11:10 Troponin I High Sens 73.9 ng/L (<3.5-17.0) H* 06/25/25 20:38 Total Protein 7.0 g/dL (6.5-8.0) 06/24/25 11:10 Albumin 4.3 g/dL (3.5-5.0) 06/24/25 11:10 TSH 2.09 uIU/mL (0.32-4.0) 06/25/25 03:02 Urine Color Yellow 06/24/25 10:48 Urine Appearance Clear 06/24/25 10:48 Urine pH 6.0 (5.0-9.0) 06/24/25 10:48 Ur Specific Jamison 1.010 (1.005-1.025) 06/24/25 10:48 Urine Protein Negative mg/dL (Neg-Trace) 06/24/25 10:48 Urine Glucose (UA) Negative mg/dL (Negative) 06/24/25 10:48 Urine Ketones Trace mg/dL (Negative) 06/24/25 10:48 Urine Blood Negative (Negative) 06/24/25 10:48 Urine Nitrite Negative (Negative) 06/24/25 10:48 Ur Leukocyte Esterase Negative (Negative) 06/24/25 10:48 Urine RBC 0-2 /HPF (0-2) 06/24/25 10:48 Urine WBC 0-5 /HPF (0-5) 06/24/25 10:48 Ur Squamous Epith Cells 11-20 /HPF (0-2) 06/24/25 10:48 Urine Bacteria 4+ (None Seen) 06/24/25 10:48 Hyaline Casts 3-5 /LPF (0-2) 06/24/25 10:48 Urine Test NEGATIVE (NEGATIVE) 06/24/25 10:48 Urine Opiates Screen Not Detected (Not Detect) 06/24/25 10:48 Ur Buprenorphine Scrn Not Detected ng/mL (Not Detect) 06/24/25 10:48 Ur Oxycodone Screen Not Detected ng/mL (Not Detect) 06/24/25 10:48 Urine Methadone Screen Not Detected ng/mL (Not Detect) 06/24/25 10:48 Urine Fentanyl Screen Not Detected (Not Detect) 06/24/25 10:48 Ur Barbiturates Screen Not Detected (Not Detect) 06/24/25 10:48 Ur Phencyclidine Scrn Not Detected (Not Detect) 06/24/25 10:48 Ur Amphetamines Screen Not Detected (Not Detect) 06/24/25 10:48 U Benzodiazepines Scrn Not Detected (Not Detect) 06/24/25 10:48 Urine Cocaine Screen POSITIVE (Not Detect) H 06/24/25 10:48 U Marijuana (THC) Screen POSITIVE (Not Detect) H 06/24/25 10:48 Ethyl Alcohol < 10 mg/dL 06/24/25 11:10 Discharge Plan Discharge Anticipated Discharge Date/Time: 06/27/25 11:07 Patient Disposition: Xfer Psychiatric Hosp Discharge Diagnosis: suicidal ideation cocaine abuse hypotension elevated troponin Referrals: Sandi Adam MD [Primary Care Provider, Pediatrics] - 1 Week Discharge Medications: Continued trazodone 50 mg tablet 50 mg PO BEDTIME hydroxyzine HCl 50 mg tablet 50 mg PO BID PRN (Reason: Anxiety) nicotine (polacrilex) 4 mg gum 4 mg PO Q4H PRN (Reason: Nicotine Cravings) bupropion HCl 75 mg tablet 75 mg PO DAILY ibuprofen 600 mg tablet 600 mg PO BID PRN (Reason: pain) Discharge Orders: Discharge Order (Routine); Ordered 06/27/25 Ordered By: Annabella Prabhakar Diet: Advance to usual diet Activity on Discharge: As tolerated Stand Alone Forms: Patient Portal Discharge page Print Language: [place] [facility] Concerns: suicidal ideation cocaine abuse hypotension elevated troponin Plan of Treatment: transfer to psychiatry as inpatient meet with Addiction Medicine avoid cocaine abuse
[2025-06-27 11:16] VITALS: BP 101/66; PULSE 56; RESP 18; TEMP 36.5; O2SAT 96
--- NOTE | 2025-06-27 11:25 | MHC.CM.PN ---
Pt is medically cleared for discharge, pending inpatient psych bed placement.
== END 2025-06-27 13:19 | DRG 816 ==
LOC: HO.ED 21:31 → HO.EDOVER 06-25 11:16 → HO.IMC 06-25 20:21
PROVIDERS: Emergency Medicine; Internal Medicine; Admitting Provider Physician Assistant Medical; Emergency Provider Emergency Medicine; PCP Internal Medicine; Visit Provider Family Medicine
DX: T40.5X1A Poisoning by cocaine, accidental (unintentional), initial encounter (principal); E87.21 Acute metabolic acidosis; R45.851 Suicidal ideations; I95.9 Hypotension, unspecified; F17.210 Nicotine dependence, cigarettes, uncomplicated; F39 Unspecified mood [affective] disorder; R79.89 Other specified abnormal findings of blood chemistry; Z71.6 Tobacco abuse counseling; F14.10 Cocaine abuse, uncomplicated; Z79.899 Other long term (current) drug therapy
CPT/HCPCS: 36415; 71045; 80048; 80053; 80307; 81001; 81025; 83605; 83735; 84443; 84484; 85025; 93005; 93306; 99285; J7120; P9047; Q9957; S9485

== ENCOUNTER → 2025-06-24 22:29 | Outpatient (BNV) | payer OTHER, SELFPAY | PROVIDERS: Admitting Provider Physician Assistant Medical; Emergency Provider Emergency Medicine; PCP Internal Medicine; Visit Provider Internal Medicine Cardiovascular Disease | DX: I49.3 Ventricular premature depolarization (principal); R00.1 Bradycardia, unspecified | CPT/HCPCS: 93010 ==

== ENCOUNTER 2025-06-25 11:15 | Outpatient (BNV) | payer OTHER, SELFPAY | END 2025-06-25 20:01 | PROVIDERS: Admitting Provider Physician Assistant Medical; Emergency Provider Emergency Medicine; PCP Internal Medicine; Visit Provider Radiology Diagnostic Radiology | DX: R00.1 Bradycardia, unspecified (principal) | CPT/HCPCS: 71045 ==

== ENCOUNTER 2025-06-25 11:15 | Outpatient (BNV) | payer OTHER, SELFPAY | END 2025-06-25 20:56 | PROVIDERS: Admitting Provider Physician Assistant Medical; Emergency Provider Emergency Medicine; PCP Internal Medicine; Visit Provider Internal Medicine Cardiovascular Disease | DX: I49.3 Ventricular premature depolarization (principal) | CPT/HCPCS: 93010 ==

== ENCOUNTER 2025-06-25 11:15 | Outpatient (BNV) | payer OTHER, SELFPAY | END 2025-06-26 07:00 | PROVIDERS: Admitting Provider Physician Assistant Medical; Emergency Provider Emergency Medicine; PCP Internal Medicine; Visit Provider Internal Medicine Cardiovascular Disease | DX: I51.7 Cardiomegaly (principal); I36.1 Nonrheumatic tricuspid (valve) insufficiency | CPT/HCPCS: 93306 ==

== ENCOUNTER → 2025-06-25 11:15 | Outpatient (BNV) | payer OTHER, SELFPAY | PROVIDERS: Admitting Provider Physician Assistant Medical; Emergency Provider Emergency Medicine; PCP Internal Medicine; Visit Provider Internal Medicine Cardiovascular Disease | DX: I95.89 Other hypotension (principal); R79.89 Other specified abnormal findings of blood chemistry | CPT/HCPCS: 99222 ==

== ENCOUNTER → 2025-06-25 11:15 | Outpatient (BNV) | payer OTHER, SELFPAY | PROVIDERS: Admitting Provider Physician Assistant Medical; Emergency Provider Emergency Medicine; PCP Internal Medicine; Visit Provider Physician Assistant Medical | DX: E87.20 Acidosis, unspecified (principal); F14.90 Cocaine use, unspecified, uncomplicated; R45.851 Suicidal ideations | CPT/HCPCS: 99223; 99232; 99239 ==

== ENCOUNTER 2025-06-27 11:09 | Inpatient (IN) | payer OTHER, SELFPAY ==
[2025-06-27 13:33] VITALS: BP 97/57; PULSE 49; RESP 16; TEMP 37.2; O2SAT 98
--- OUTSIDE RECORDS SUMMARY | 2025-06-27 16:57 | XMS_ITS | Clinical Summary ---
Author Organization [facility] Address [address] [place] [address] Phone Care Team Providers Care Die Inspector Name Role Phone Sandi Adam MD Primary Care Provider [phone] Allergies Active Allergy Reactions Criticality Noted Date [...] EDT - 06/06/2025 10:38 AM EDT Emergency [facility] Emergency [address] [place] [address] Chau Garcia MD Landry, MD Kwesi León, Timbo Varghese MD Acute UTI (Primary Dx); Drug abuse, cocaine type ([facility] V24, [facility] V28) Discharge Disposition: Home or Self Care from Last 3 Months Surgical History Surgery Date Site/Laterality Comments KNEE SURGERY PROCEDURE: HISTORICAL KNEE SURGERY BARIATRIC SURGERY 10/19/2019 - 10/18/2020 sleeve gastrrectomy with hiatal hernia repair per EMR Medical History Medical History Date Comments Anxiety DX:Anxiety Bipolar disorder ([facility] V2 4, [facility] V28) DX:Bipolar disorder ([facility]) CHRISTIE III (cervical intraepith elial neoplasia III) 04/27/2020 DX:CHRISTIE III (cervical intraep ithelial neoplasia III) GERD (gastroesophageal reflux disease) 04/27/2020 DX:GERD (gastroesophageal reflux disease) Alcohol abuse Hypotension Depression Suicide ([facility] V24, [facility] V28) Family History Medical History Relation Name [...] CBC auto differential (06/05/2025 5:51 PM EDT) [facility] Signature WBC 7.5 4.8 - 10.8 K/mcL LAB HEMETOLOGY METHOD 06/05/2025 6:[address] [facility] RBC 4.00 3.80 - 4.80 M/mcL LAB [facility] Hemoglobin 10.5(L) 11.5 - 16.0 g/dL LAB HEMETOLOGY METHOD 06/05/2025 6:40 PM [facility] Hematocrit 34.7(L) 35.0 - 47.0 % LAB HEMETOLOGY METHOD 06/05/2025 6[facility] MCV 86.8 79.0 - 98.0 FL LAB HEMETOLOGY METHOD 06/05/2025 6:[facility] MCH 26.3(L) 27.0 - 32.0 pcg LAB HEMETOLOGY METHOD 06/05/2025 6:40 PM [facility] MCHC 30.3(L) 32.0 - 37.0 g/dL LAB HEMETOLOGY METHOD 06/05/2025 6:40 PM [facility] RDW 15.4(H) 11.0 - 15.0 % LAB HEMETOLOGY METHOD 06/05/2025 6[facility] Platelets 364 130 - 400 K/mcL LAB HEMETOLOGY METHOD 06/05/2025 6:40 PM [facility] MPV 9.6 7.0 - 11.0 FL LAB HEMETOLOGY METHOD 06/05/2025 6:[facility] NRBC 0.0 <1.0 % LAB HEMETOLOGY METHOD 06/05/2025 6:[address] [facility] NRBC Absolute 0.00 <0.10 K/mcL LAB HEMETOLOGY METHOD 06/05/2025 6:[address] [facility] Neutrophils Relative 74.2 % LAB HEMETOLOGY METHOD 06/05/2025 6:[address] [facility] Lymphocytes Relative 17.1 % LAB HEMETOLOGY METHOD 06/05/2025 6:[address] [facility] Monocytes Relative 5.7 % LAB HEMETOLOGY METHOD 06/05/2025 6:[address] [facility] Eosinophils Relative 2.1 % LAB HEMETOLOGY METHOD 06/05/2025 6:40 PM [facility] Basophils Relative 0.4 % LAB HEMETOLOGY METHOD 06/05/2025 6:[address] [facility] Immature Granulocytes Relative 0.5 % LAB HEMETOLOGY METHOD 06/05/2025 6:40 [facility] Neutrophils Absolute 5.59 1.50 - 7.00 K/mcL LAB HEMETOLOGY METHOD 06/05/2025 6:[facility] Lymphocytes Absolute 1.29 1.00 - 5.00 K/mcL LAB HEMETOLOGY METHOD 06/05/2025 6:[address] [facility] Monocytes Absolute 0.43 0.20 - 1.00 K/mcL LAB HEMETOLOGY METHOD 06/05/2025 6:[address] [facility] Eosinophils Absolute 0.16 0.00 - 0.50 K/mcL LAB HEMETOLOGY METHOD 06/05/2025 6[facility] Basophils Absolute 0.03 0.00 - 0.20 K/mcL LAB HEMETOLOGY METHOD 06/05/2025 6:[address] [facility] Immature Granulocytes Absolute 0.04(H) 0.00 - 0.03 K/mcL LAB HEMETOLOGY METHOD 06/05/2025 6:[address] [facility] Blood Venous blood specimen / Unknown Venipuncture / Unknown 06/05/2025 5:51 PM EDT 06/05/2025 6:32 PM EDT Rosa Maria AMAYA LAB BLOOD ORDERABLES Fin al Result Performing Organization Address [facility]/ZIP Co de Phone Number [facility] [address] [place] [address], [place] [phone] * Ethanol (06/05/2025 5:51 PM EDT) Ethanol Level 4 0 - 10 mg/dL LAB CHEMISTRY METHOD 06/05/2025 7:[address] [facility] Blood Venous blood specimen / Unknown Venipuncture / Unknown 06/05/2025 5:51 PM EDT 06/05/2025 6:32 PM EDT Rosa Maria AMAYA LAB BLOOD ORDERABLES Fin al Result Performing Organization Address [facility]/ZIP Co de Phone Number [facility] [address] [place] [address], [place] [phone] * (ABNORMAL) Acetaminophen level (06/05/2025 5:51 PM EDT) Acetaminophen Level <2.0(L) 10.0 - 30.0 mcg/mL LAB CHEMISTRY METHOD 06/05/2025 7:[address] [facility] Blood Venous blood specimen / Unknown Venipuncture / Unknown 06/05/2025 5:51 PM EDT 06/05/2025 6:32 PM EDT Rosa Maria AMAYA LAB BLOOD ORDERABLES Fin al Result Performing Organization Address [facility]/ZIP Co de Phone Number [facility] [address] [place] [address], * (ABNORMAL) Salicylate level (06/05/2025 5:51 PM EDT) Salicylate Level <1.7(L) 2.0 - 29.0 mg/dL LAB CHEMISTRY METHOD 06/05/2025 7:[address] [facility] Blood Venous blood specimen / Unknown Venipuncture / Unknown 06/05/2025 5:51 PM EDT 06/05/2025 6:32 PM EDT Rosa Maria AMAYA LAB BLOOD ORDERABLES Fin al Result Performing Organization Address [facility] Co de Phone Number [facility] [address] [place] [address], * (ABNORMAL) Comprehensive metabolic panel (06/05/2025 5:51 PM EDT) Sodium 140 133 - 145 mmol/L LAB CHEMISTRY METHOD 06/05/2025 7:08 PM [facility] Potassium 4.2 3.5 - 5.5 mmol/L LAB CHEMISTRY METHOD 06/05/2025 7:08 PM [facility] Chloride 108 96 - 110 mmol/L LAB CHEMISTRY METHOD 06/05/2025 7:08 PM [facility] CO2 30 21 - 32 mmol/L LAB CHEMISTRY METHOD 06/05/2025 7:08 PM [facility] Anion Gap 2(L) 3 - 11 LAB CHEMISTRY METHOD 06/05/2025 7:08 PM [facility] Glucose 82 70 - 100 mg/dL LAB CHEMISTRY METHOD 06/05/2025 7:08 PM [facility] BUN 14 5 - 25 mg/dL LAB CHEMISTRY METHOD 06/05/2025 7:08 PM [facility] Creatinine 0.81 0.50 - 1.10 mg/dL LAB CHEMISTRY METHOD 06/05/2025 7:08 PM [facility] eGFR 91 >=60 mL/min/1. 73m2 LAB CHEMISTRY METHOD 06/05/2025 7:08 PM [facility] Comment:Calculation based on the Chronic Kidney Disease Epidemiology Collaboration (CKD-EPI) equation refit without adjustment for race. BUN/Creatinine Ratio 17.3 LAB CHEMISTRY METHOD 06/05/2025 7:08 PM [facility] Calcium 9.2 8.5 - 10.5 mg/dL LAB CHEMISTRY METHOD 06/05/2025 7:08 PM [facility] AST (SGOT) 12 10 - 42 unit/L LAB CHEMISTRY METHOD 06/05/2025 7:08 PM [facility] ALT (SGPT) 21 10 - 60 unit/L LAB CHEMISTRY METHOD 06/05/2025 7:08 PM [facility] Alkaline Phosphatase 55 42 - 121 unit/L LAB CHEMISTRY METHOD 06/05/2025 7:08 PM [facility] Total Protein 6.5 6.0 - 8.0 g/dL LAB CHEMISTRY METHOD 06/05/2025 7:08 PM [facility] Albumin 3.5 3.2 - 5.0 g/dL LAB CHEMISTRY METHOD 06/05/2025 7:08 PM [facility] Total Bilirubin 0.3 0.0 - 1.4 mg/dL LAB CHEMISTRY METHOD 06/05/2025 7:08 PM [facility] Blood Venous blood specimen / Unknown Venipuncture / Unknown 06/05/2025 5:51 PM EDT 06/05/2025 6:32 PM EDT us Rosa Maria AMAYA LAB BLOOD ORDERABLES Fin al Result [facility] [address] [place] [address], [place] [phone] * ECG 12 lead (06/05/2025 5:50 PM EDT) Pathologist [facility] Ventricular Rate ECG 67 BPM GEMUSE Atrial Rate 67 BPM GEMUSE P-R Interval 142 ms GEMUSE QRS Duration 78 ms GEMUSE Q-T Interval 404 ms GEMUSE QTc 426 ms GEMUSE P Wave Ajo 47 degrees GEMUSE R Ajo 12 degrees GEMUSE T Ajo 26 degrees GEMUSE ECG Interpretation Normal sinus rhythm with sinus arrhythmia Normal ECG When compared with ECG of 26-NOV-2024 15:42, No significant change was found Confirmed by GALDINO MARTINEZ ([id number]) on 06/06/2025 4:02:15 PM GEMUSE 06/05/2025 5:50 PM EDT 06/06/2025 4:02 PM EDT Rosa Maria AMAYA ECG ORDERABLES Final Re sult HIEN * POC , urine manually resulted (06/05/2025 5:25 PM EDT) Pathologist [facility] HCG, Ur POC Negative Negative Urine Urine specimen obtained by clean catch procedure / Unknown 06/05/2025 5:25 PM EDT Rosa Maria AMAYA POINT OF CARE TEST ENTER /EDIT ORDERABLES Final Result * (ABNORMAL) Urinalysis with reflex microscopic and culture (06/05/2025 5:21 PM EDT) Pathologist [facility] Specific [place] Urine 1.022 1.003 - 1.030 LAB URINALYSIS - AUTOMATED METHOD 06/05/2025 6:[address] [facility] pH, Urine 6.5 5.0 - 8.0 pH LAB URINALYSIS - AUTOMATED METHOD 06/05/2025 6:27 PM [facility] Leukocytes, Urine Large(A) Negative LAB URINALYSIS - AUTOMATED METHOD 06/05/2025 6:27 PM [facility] Nitrite, Urine Positive(A) Negative LAB URINALYSIS - AUTOMATED METHOD 06/05/2025 6:27 PM [facility] Protein, Urine 100(A) <=Trace mg/dL LAB URINALYSIS - AUTOMATED METHOD 06/05/2025 6:27 PM [facility] Glucose, Urine Negative Negative mg/dL LAB URINALYSIS - AUTOMATED METHOD 06/05/2025 6:27 PM [facility] Ketones, Urine Trace(A) Negative mg/dL LAB URINALYSIS - AUTOMATED METHOD 06/05/2025 6:27 PM [facility] Urobilinogen , Urine 1.0 0.2 - 1.0 mg/dL LAB URINALYSIS - AUTOMATED METHOD 06/05/2025 6:27 PM [facility] Bilirubin, Urine Negative Negative LAB URINALYSIS - AUTOMATED METHOD 06/05/2025 6:27 PM [facility] Blood, Urine Small(A) Negative LAB URINALYSIS - AUTOMATED METHOD 06/05/2025 6:27 PM [facility] RBC, Urine 5(H) 0 - 4 /HPF LAB URINALYSIS - AUTOMATED METHOD 06/05/2025 6:27 PM [facility] WBC, Urine 1,657.1(H) 0 - 4 /HPF LAB URINALYSIS - AUTOMATED METHOD 06/05/2025 6:27 PM [facility] Squamous Epithelial, Urine >100(H) 0 - 60 /LPF LAB URINALYSIS - AUTOMATED METHOD 06/05/2025 6:27 PM [facility] Bacteria, Urine Many(A) Negative /HPF LAB URINALYSIS - AUTOMATED METHOD 06/05/2025 6:[address] [facility] Hyaline Casts, Urine 10.3(H) 0 - 3 /LPF LAB URINALYSIS - AUTOMATED METHOD 06/05/2025 6:[address] [facility] Urine Urine specimen obtained by clean catch procedure / Unknown Non-blood Collection / Unknown 06/05/2025 5:21 PM EDT 06/05/2025 6:00 PM EDT us Timbo Orosco MD LAB URINE ORDERABLES Fin al Result Performing Organization Address [facility]/ZIP Co de Phone Number [facility] [address] [place] [address], [place] [phone] * Rogers urine culture tube (06/05/2025 5:21 PM EDT) Extra Tube Hold for add-ons. 06/05/2025 7:[address] [facility] Comment:Auto resulted. Urine Urine specimen obtained by clean catch procedure / Unknown Non-blood Collection / Unknown 06/05/2025 5:21 PM EDT 06/05/2025 6:00 PM EDT us Timbo Orosco MD LAB URINE ORDERABLES Fin al Result Performing Organization Address [facility] de Phone Number [facility] [address] [place] [address], [place] [phone] * (ABNORMAL) Culture urine (06/05/2025 5:21 PM EDT) Culture, Urine >=100,000 CFU/mL Klebsiella aerogenes(A) 06/08/2025 7:[address] [facility] Comment: This is an edited [...] MICROBIOLOGY - GENER AL ORDERABLES Final Result [facility] [address] [place] [address], [place] [phone] * (ABNORMAL) Drug abuse screen 8a panel, urine (06/05/2025 5:20 PM EDT) Amphetamine Screen, Ur Negative Negative LAB CHEMISTRY METHOD 5 6:[address] [facility] Comment:Certain OTC medicati ons containing ephedrine, phenylephrine, pseudoephedrine and phenylpropanolamine can cause false positive results. Barbiturate Screen, Ur Negative Negative LAB CHEMISTRY METHOD 5 6:[address] [facility] Benzodiazepine Screen, Ur Negative Negative LAB CHEMISTRY METHOD 5 6:[address] [facility] Cocaine Screen, Ur Positive(A ) Negative LAB CHEMISTRY METHOD 5 6:[address] [facility] Opiate Screen, Ur Negative Negative LAB CHEMISTRY METHOD 5 6:[address] [facility] Cannabinoid (THC) Screen, Ur Positive(A ) Negative LAB CHEMISTRY METHOD 5 6:[address] [facility] Comment:Specimens from patie nts taking pantoprazole sodium (Protonix) have been shown to produce false positive results. Oxycodone Screen, Ur Negative Negative LAB CHEMISTRY METHOD 6:[address] [facility] Fentanyl, Ur Negative Negative LAB CHEMISTRY METHOD 6:[address] [facility] Urine Urine specimen obtained by clean catch procedure / Unknown Non-blood Collection / Unknown 06/05/2025 5:20 PM EDT 06/05/2025 6:00 PM EDT [facility] - 06/05/2025 6:33 PM [...] AMAYA LAB URINE ORDERABLES Fin al Result [facility] [address] [place] [address], * Buprenorphine screen, urine (06/05/2025 5:20 PM EDT) Buprenorphine Screen Urine Negative Negative LAB CHEMISTRY METHOD 06/05/2025 6:[address] [facility] Urine Urine specimen obtained by clean catch procedure / Unknown Non-blood Collection / Unknown 06/05/2025 5:20 PM EDT 06/05/2025 6:00 PM EDT [facility] - 06/05/2025 6:33 PM EDT Assay cutoff 5 ng/mL Semi-quantitative assay for screening purposes only. Unconfirmed screening result should not be used for non-medical purposes. *ALTERNATE METHOD CONFIRMATION DONE UPON REQUEST ONLY* Rosa Maria AMAYA LAB URINE ORDERABLES Fin al Result Performing Organization Address [facility] Co de Phone Number [facility] [address] [place] [address], [place] [phone] * Methadone, urine (06/05/2025 5:20 PM EDT) Methadone Screen, Urine Negative Negative LAB CHEMISTRY METHOD 06/05/2025 6:[address] [facility] Comment: Assay cutoff 300 ng/mL [...] ORDERABLES Fin al Result Performing Organization Address [facility] de Phone Number [facility] [address] [place] [address], [place] [phone] * Phencyclidine, urine (06/05/2025 5:20 PM EDT) PCP Scrn, Ur Negative Negative LAB CHEMISTRY METHOD 06/05/2025 6:[address] [facility] Comment: Assay cutoff 25 ng/mL [...] ORDERABLES Fin al Result Performing Organization Address [facility] Co de Phone Number [facility] [address] [place] [address], from Last 3 Months Insurance [employer] Care Teams Die Inspector Relationship Specialty Start Date End Date Sandi Adam MD [address] [place] [id number] PCP - General Internal Medicine 08/04/18
--- OUTSIDE RECORDS SUMMARY | 2025-06-27 16:57 | XMS_ITS | Patient Health Record ---
Author Organization [facility] Address [address] [place] [address] Care Team Providers Care Operational Test Mechanic Name Role Phone NO, PCP Primary Care Provider [phone] Nelly Uriarte Unavailable [phone] Reason For Referral No Information Encounters Encounter Location Date Provider Diagnosis [facility] [address], [place] [id number] 11/09/2024 Nelly Uriarte Plan Of Treatment No Information Insurance Providers Payer Name Payer Address Payer Phone Subscriber Number Group Number Insured Name Patient Relationship to Insured Coverage Start Date Coverage End Date Insurance - None Need to apply for insurance [id number] [place] [id number] Herlinda De La Vega Self - patient is the insured
--- NOTE | 2025-06-27 17:08 | PC.NURSE ---
Herlinda was admitted to [facility] at 13.33 from [facility] CV with 15 minute checks for treatment of unspecified depressive disorder and cocaine use disorder. Pt initially presented to the ED for worsening depression, anxiety, and AH and VH induced by her substance use of crack cocaine. She was endorsing SI with plan to jump from a bridge. She denies any history of past attempts. She is AOx4, guarded and tearful, but mostly cooperative with the admission process. Mood is depressed and anxious and pt is visibly tearful at times throughout the assessment. She states ?I don?t want to on the streets? and is expressing a desire to go to a program for [facility]. Affect sad and tearful. She denies any current AH or VH, and states that she only has that happen ?when she uses?. She does not appear internally preoccupied or responding to any internal stimuli. Thought process is linear, with no paranoia or delusions observed. She denies HI or current feelings of SI, and is agreeable with contacting staff if she begins to feel unsafe. She endorses intermittently poor sleep, denies any recent appetite changes or weight changes. She reports regular use of crack that has increased recently, occasional marijuana and heroin use but denies any MAT for opiates, and has no current concerns for withdrawals. She last used crack before presenting to the ED. Her tox was positive for cocaine, and cannabinoids. After presenting to the ED, she was medically admitted for hypotension (70/30?s) and elevated troponins 115 -> 98. Cardiology was consulted, she had an echo done that was unremarkable with an EF of 60-65%. Elevated troponins were determined to be as a result of demand in setting of cocaine use. She denies any medical issues, and has no physical complaints at this time. She does not have a guardian, or HCP, or ottoniel?s order.
[2025-06-27 17:28] VITALS: BMI 30.3
[2025-06-27 19:55] VITALS: BP 97/55; PULSE 54; RESP 16; TEMP 35.7; O2SAT 100
[2025-06-28 08:00] VITALS: BP 89/50; PULSE 65; RESP 16; TEMP 36.6; O2SAT 98
[2025-06-28 08:55] LABS: Hemoglobin A1C 93.6783 umol/L; Total Hemoglobin (HGBA1C) 2716.3309 umol/L
[2025-06-28 09:12] LABS: Cholesterol 136 mg/dL (<200); HDL Cholesterol 52 mg/dL (>40); Magnesium 2.1 mg/dL (1.6-2.6); Triglycerides 48 mg/dL (<150)
[2025-06-28 09:28] LABS: Free T4 (Free Thyroxine) 0.97 ng/dL (0.71-1.85); Thyroid Stimulating Hormone 2.23 uIU/mL (0.32-4.0)
[2025-06-28 09:40] LABS: Folate 11.8 ng/mL (> or = 4.0); Vitamin B12 287 pg/mL (200-900)
--- NOTE | 2025-06-28 09:54 | MHC.RECOVRN ---
TW attempted to meet pt in - after consult placed to addiction medicine for cocaine/crack use. On approach pt was laying in bed, blankets over her head. She awoke to name being called. TW explanied reason for the visit and pt replied she was attempting to sleep due to poor sleep the night prior. Pt denies any withdrawal symptoms or the use of alcohol prior to admission. TW to return later today to complete assessment/interview
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
--- NOTE | 2025-06-28 16:57 | MHC.RECOVRN ---
TW met with the patient in - after consult was placed to Addiction Medicine. TW met with pt to discuss current cocaine use and concerns related to increased risk and related problems of continued substance use. On approach pt was laying in bed with a blanket over her head. She answered to name being called and agreed to talk with T/w. She denies any current withdrawal symptoms and endorses poor appetite and sleep.? Pt was difficult to engage and provided short answers to assessment questions.? Pt reports abstaining from cocaine and heroin for over 11 years but for the past 3 years has returned to smoking crack cocaine. Pt also reports using approximately 2 bundles of heroin daily and reports she mixes the heroin with crack cocaine to smoke it.. When asked about precipitating factors to her return to use she was unable to elaborate and shrugged her shoulders.? Pt reports attending a program ?somewhere like [place]?, but again, was unable or unwilling to elaborate if this was detox or a residential program.? Pt was offered referrals for recovery coaching and to the [facility] program, however, responded, ?My worker is covering that?. TWs? intention was to discuss substance use and provide recovery and support options, however, pt was eager to end the conversation as evidenced by her placing the blanket back over her head and rolling over.? Pt declines intervention or appt for tx related to BART at this time. TW is available for further support and resources related to [facility].
[2025-06-28 20:00] VITALS: BP 80/58; PULSE 64; RESP 16; TEMP 36.3; O2SAT 96
[2025-06-29 08:00] VITALS: BP 99/50; PULSE 51; TEMP 36.9; O2SAT 99
--- NOTE | 2025-06-29 08:22 | MHC.RECOVRN ---
Late entry: TW met with the patient on 06/28/25 @ 5036 in 517-1 to discuss current cocaine use and concerns related to increased risk of cocaine use and related problems after consult was placed to Addiction Medicine.? On approach pt was laying in bed with a blanket over her head. She answered to name being called and agreed to talk with T/w. She denies any current withdrawal symptoms and endorses poor appetite and sleep.? Pt was difficult to engage and provided short answers to assessment questions.? Pt reports abstaining from cocaine and heroin for over 11 years but for the past 3 has returned to smoking crack cocaine. Pt also reports using approximately 2 bundles of heroin daily. Pt states she mixes the heroin with crack cocaine. When asked about precipitating factors to her return to use she was unable to elaborate and shrugged her shoulders.? Pt reports attending a program?somewhere like [place]?, but again, was unable or unwilling to elaborate if this was detox or a residential program.? Pt was offered referrals for recovery coaching and to the [facility] program, however, responded, ?My worker is covering that?. TWs? intention was to discuss substance use and provide recovery and support options, however, pt was eager to end the conversation as evidenced by her placing the blanket back over her head and rolling over.? Pt declines intervention, [facility], or appt for tx related to AUD at this time. TW is available for further support and resources related to B[facility].?
[2025-06-29 20:00] VITALS: BP 78/37; PULSE 60; RESP 16; TEMP 38.2; O2SAT 99
[2025-06-30 08:00] VITALS: BP 97/51; PULSE 50; TEMP 36.9; O2SAT 98
--- NOTE | 2025-06-30 08:20 | HO.PSYCHPN ---
Subjective Subjective Date of Service: 06/29/25 Reason For Visit: cocaine use disorder major depression with SI Interim History: late entry note for pt seen on 06/29; seen with Mika Christiansen pt remains very depressed; misses kids and laments her struggles with drug abuse. Discussed behavioral activation and pt will engage. Agrees to Zoloft titration. Discussed MAT and she would like to try Naltrexone since she struggles w/ opiates (reviewed risks/side effects) Diagnostics Vital Signs (24Hr): Vital Signs - 24 hr 06/29/25 20:00 Temperature 100.8 F H Pulse Rate 60 Respiratory Rate 16 Blood Pressure 78/37 L Pulse Oximetry 99 Oxygen Delivery Method Room Air BMI result Body Mass Index 30.3 Labs Labs: Laboratory Results - last 48 hr 06/28/25 08:35 Estimat Average Glucose 105 Hemoglobin A1c % 5.3 Magnesium 2.1 Triglycerides 48 Cholesterol 136 LDL Cholesterol, Calc 75 HDL Cholesterol 52 Vitamin B12 287 Folate 11.8 TSH 2.23 Free T4 0.97 Medications Medications Current Medications Al Hydroxide/Mg Hydroxide (Magnesium Hydrox/Alum Hydrox 30 Ml Oral.Susp) 30 ml PO Q6H PRN PRN Reason: Heartburn/Nausea Folic Acid (Folic Acid 1 Mg Tablet) 1 mg PO DAILY ON LICENSE OF [facility] Last Admin: 06/29/25 08:28 Dose: 1 mg Ibuprofen (Ibuprofen 600 Mg Tablet) 600 mg PO BID PRN PRN Reason: Pain, Mild 1-3,fever,headache Magnesium Hydroxide (Milk Of Magnesia 30 Ml Oral.Susp) 30 ml PO DAILY PRN PRN Reason: Constipation Nicotine (Nicotine 21 Mg Patch.Td24) 21 mg TRANSDERMA DAILY PRN PRN Reason: smoking cessation Nicotine Polacrilex (Nicotine Polacrilex 2 Mg Gum) 4 mg BUCCAL Q2H PRN PRN Reason: Nicotine Cravings Olanzapine (Olanzapine 2.5 Mg Tablet) 2.5 mg PO TID PRN PRN Reason: agitation Sertraline HCl (Sertraline Hcl 50 Mg Tablet) 50 mg PO DAILY ON LICENSE OF [facility] Stop: 07/01/25 09:00 Last Admin: 06/29/25 08:28 Dose: 50 mg Sertraline HCl (Sertraline Hcl 25 Mg Tablet) 75 mg PO DAILY ED Thiamine HCl (Thiamine Hcl 100 Mg Tablet) 100 mg PO DAILY ON LICENSE OF [facility] Last Admin: 06/29/25 08:28 Dose: 100 mg Trazodone HCl (Trazodone Hcl 50 Mg Tablet) 50 mg PO BEDTIME MRX1 PRN PRN Reason: insomnia Trazodone HCl (Trazodone Hcl 50 Mg Tablet) 50 mg PO BEDTIME ED Last Admin: 06/29/25 21:10 Dose: 50 mg Allergies Allergies Allergy/AdvReac Type Severity Reaction Status Date / Time No Known Allergies Allergy Verified 06/24/25 10:25 Assessment & Plan Assessment & Plan (1) MDD (major depressive disorder), recurrent severe, without psychosis: Status: Acute Code(s): F33.2 - Major depressive disorder, recurrent severe without psychotic features (2) PTSD (post-traumatic stress disorder): Status: Acute Code(s): F43.10 - Post-traumatic stress disorder, unspecified (3) Cocaine use disorder: Status: Acute Code(s): F14.10 - Cocaine abuse, uncomplicated (4) Opioid use disorder: Status: Acute Code(s): F11.90 - Opioid use, unspecified, uncomplicated (5) Hypotension: Qualifiers: Hypotension type: other hypotension type Qualified Code(s): I95.89 - Other hypotension Status: Acute Code(s): I95.9 - Hypotension, unspecified Plan HPI: Pt is a 45 yo female with hx of depression, ptsd, cocaine/opioid abuse who presents for depression and SI in face of being off medications and embroiled in substance abuse with crack cocaine and heroin. Initially medically admitted for hypotension. Pt reports she was sober for 11 years but relapsed about 3 years ago. She was benefiting from Zoloft but stopped medications about a year ago and her depression returned and Substance abuse continued. She says I was using drugs, couldn't stop.. depressed, anxious... Over the months she's been trying to stay sober and could do so for 2-3 weeks but she would then relapse. Pt says past few weeks depression worsened and she was not getting out of bed, not talking to anyone. Patient says while being intoxicated she had AH telling me to burn myself...in that moment i hated myself... She had SI to jump from a bridge but self-presented instead. Denies hx of manic episodoes or behaviors AH only when intoxicated hx SIB to burn self but has refrained Formulation/clinical reasoning: pt with hx of MDD, PTSD exacerbated by drug use. AH substance induced and now resolved. She benefited from Zoloft and after consumer loan underwriter reviewed risks/side-effects she wants to restart. Pt wants help with getting into a program for help w/ sobriety. -pt mildly hypotensive, asymptomatic and stable Hospital course: 06/29 pt remains very depressed; misses kids and laments her struggles with drug abuse. Discussed behavioral activation and pt will engage. Agrees to Zoloft titration. Discussed MAT and she would like to try Naltrexone since she struggles w/ opiates (reviewed risks/side effects) -titrate zoloft -start Naltrexone; will check lfts -monitor BP's (remains asymptomatic) Plan: cv q15 Titrate Zoloft start naltrexone Trazodone for sleep (says has helped in past) DC Wellbutrin for now (as pt identified Zoloft as helpful antidepressant) CCC consult Patient educated on: diagnosis, medication risk/benefits, substance abuse and therapeutic strategies Informed Consent: understands Reason for continued inpatient stay Substantial Risk for: rapid decompensation Time Spent With Patient Time: Total time managing care of this patient today ____ minutes.
--- NOTE | 2025-06-30 08:54 | HO.PM.IMCN ---
History of Present Illness Data of Consult Service Date: 06/30/25 Primary Care Provider: Sandi Adam MD [facility] Reason for consult: Hypotension 45-year-old female with a past medical history of PTSD, major depressive disorder, hypotension, history of crack and cocaine use, opioid use disorder, presented to the ED with suicidal ideation. While in the ED overnight her blood pressure was trending down as low as 70 systolic, she had elevated troponins, and elevated lactic acid and the rest of her labs were unremarkable. There was no evidence of infection and she was asymptomatic. She received 4 L IV fluids 2 doses of midodrine and albumin. Cardiology was consulted, she had no evidence of infection or angina. An echocardiogram demonstrated a normal LVEF. Blanco that the troponins in the setting of low blood pressure possibly represent second-degree myocardial damage due to low perfusion and/or cocaine use. Treatment recommendations include drinking plenty of fluids and eating salt. No other specific therapies were recommended other than cocaine abstinence. Patient is observed ambulating on unit in no apparent distress. On exam she denies any shortness of breath, dizziness, lightheadedness or any other concerning symptoms. Her blood pressure noted to be low overnight, on repeat her blood pressure is 97/51 with a heart rate of 50. She denies any shortness of breath, dizziness, lightheadedness, abdominal pain, constipation, dysuria, cough or any other concerning symptoms. Reviewed labs, magnesium within normal limits, hemoglobin A1c 5.3, lipid panel and TSH within normal limits. Review of Systems Review of Systems: Denies any shortness of breath, chest pain, dizziness, lightheadedness, abdominal pain or discomfort, nausea vomiting or diarrhea [facility] Medical History (Updated 06/29/25 @ 11:13 by Vargas Menon MD) Opioid use disorder Cocaine use disorder PTSD (post-traumatic stress disorder) MDD (major depressive disorder), recurrent severe, without psychosis Bipolar depression Social History Household Members: None Housing: Homeless Housing Other:: pt stated she sometimes stay with her mother, friend, or on street Do you presently have visiting nurse or other home services: No Patient Tobacco Use Status: Current someday Tobacco user Tobacco use type: Cigarette Cigarettes Per Day: 3 Years Smoked: 20 e-Cigarette/Vaping Use: Never Used Patient Interested in Nicotine Replacement: No Patient Given Instructions on How to Stop Smoking: No (Pt declined) Second Hand Smoke Exposure: No Substance Use Type: Crack/Cocaine Currently Displaying Signs/Symptoms of Drug Intoxication Withdrawal: No Do you feel safe in your current relationship?: No Current Relationship Is there a partner from a previous relationship who is making you feel unsafe now?: No Are you made to feel afraid or neglected: No Spiritual Healthcare Practices: None Islam Healthcare Practices: None Cultural Healthcare Practices: None Advance Directives: No Advance Directives Information Provided: Yes Do you have thoughts of harming others: None Do you have a plan to hurt others: No Plan Recently lost weight without trying: No Eating poorly because of decreased appetite: No Nutrition Risks: No Nutritional Risk Patient : No : No Poor oral hygiene: No service: No Sexual orientation: Straight/Heterosexual Meds Allergies Allergy/AdvReac Type Severity Reaction Status Date / Time No Known Allergies Allergy Verified 06/24/25 10:25 Active Medications: Current Medications Al Hydroxide/Mg Hydroxide (Magnesium Hydrox/Alum Hydrox 30 Ml Oral.Susp) 30 ml PO Q6H PRN PRN Reason: Heartburn/Nausea Folic Acid (Folic Acid 1 Mg Tablet) 1 mg PO DAILY [facility] Last Admin: 06/29/25 08:28 Dose: 1 mg Ibuprofen (Ibuprofen 600 Mg Tablet) 600 mg PO BID PRN PRN Reason: Pain, Mild 1-3,fever,headache Magnesium Hydroxide (Milk Of Magnesia 30 Ml Oral.Susp) 30 ml PO DAILY PRN PRN Reason: Constipation Naltrexone HCl (Naltrexone Hcl 50 Mg Tablet) 50 mg PO DAILY [facility] Nicotine (Nicotine 21 Mg Patch.Td24) 21 mg TRANSDERMA DAILY PRN PRN Reason: smoking cessation Nicotine Polacrilex (Nicotine Polacrilex 2 Mg Gum) 4 mg BUCCAL Q2H PRN PRN Reason: Nicotine Cravings Olanzapine (Olanzapine 2.5 Mg Tablet) 2.5 mg PO TID PRN PRN Reason: agitation Sertraline HCl (Sertraline Hcl 50 Mg Tablet) 50 mg PO DAILY [facility] Stop: 07/01/25 09:00 Last Admin: 06/29/25 08:28 Dose: 50 mg Sertraline HCl (Sertraline Hcl 25 Mg Tablet) 75 mg PO DAILY [facility] Thiamine HCl (Thiamine Hcl 100 Mg Tablet) 100 mg PO DAILY [facility] Last Admin: 06/29/25 08:28 Dose: 100 mg Trazodone HCl (Trazodone Hcl 50 Mg Tablet) 50 mg PO BEDTIME MRX1 PRN PRN Reason: insomnia Trazodone HCl (Trazodone Hcl 50 Mg Tablet) 50 mg PO BEDTIME ED Last Admin: 06/29/25 21:10 Dose: 50 mg Home Medications ?Medication ?Instructions ?Recorded ?Confirmed ?Last Taken ?Type bupropion HCl 75 mg tablet 75 mg PO DAILY 06/24/25 06/24/25 Unknown History hydroxyzine HCl 50 mg tablet 50 mg PO BID PRN Anxiety 06/24/25 06/24/25 Unknown History ibuprofen 600 mg tablet 600 mg PO BID PRN pain 06/24/25 06/24/25 Unknown History nicotine (polacrilex) 4 mg gum 4 mg PO Q4H PRN Nicotine Cravings 06/24/25 06/24/25 Unknown History trazodone 50 mg tablet 50 mg PO BEDTIME 06/24/25 06/24/25 Unknown History Physical Exam Vital Signs and Narrative: Vital Signs: Last Vital Signs Temp 100.8 F H 06/29/25 20:00 Pulse 60 06/29/25 20:00 Resp 16 06/29/25 20:00 BP 78/37 L 06/29/25 20:00 Pulse Ox 99 06/29/25 20:00 O2 Del Method Room Air 06/29/25 20:00 BMI result Body Mass Index 30.3 CONST: Alert and oriented, in NAD. Well nourished HEENT: Normocephalic, atraumatic, MMM, Eyes clear, Neck supple RESP: Lungs clear, RRR even and regular. Well-perfused, skin warm and dry, no diaphoresis HEART:,RRR, S1, S2. No edema GI:Abdomen Soft NT, ND. + BS times four :Deferred SKIN: Warm dry and intact, no visible lesions or rashes NEURO:CN II-XII Intact bilaterally, Sensation intact. Speech clear PSYCH: Normal affect Assessment and Plan (1) Hypotension: Qualifiers: Hypotension type: other hypotension type Qualified Code(s): I95.89 - Other hypotension Status: Acute Plan 45-year-old with depression, PTSD, cocaine and opioid abuse, presented to the emergency room with suicidal ideation. While in the emergency room she developed hypotension and elevated troponins, was seen by Cardiology and cleared for discharge. She is now admitted to for further care and treatment. PTSD/polysubstance use/major depressive disorder/suicidal ideation Treatment per psychiatric team Hypotension/stress-induced cardiomyopathy Seen by Cardiology see note from 06/26/2025. LVEF 60-65% Elevated troponins, elevated lactic acid, felt due to decreased perfusion and cocaine use. Recommendations to increase fluids and salt in her diet, avoid further cocaine use If patient is symptomatic or continues to have orthostatic low blood pressures can consider midodrine. Thank you for allowing me to participate in the care of this patient. Signing off at this time. Please notify medical team with any medical changes or concerns
--- NOTE | 2025-06-30 12:27 | HO.PSYCHPN ---
Subjective Subjective Date of Service: 06/30/25 Reason For Visit: cocaine use disorder major depression with SI Interim History: seen with leasing specialist. feeling improved on new regimen, no requests or complaints. started zoloft and naltrexone, no negative side effects. Mental Status Exam Mental Status Exam Narrative: Pt is alert and oriented; behavior is cooperative and calm; patient is not in distress; dressed in hospital attire with unkempt hair; mood is improved and affect congruent; eye contact fair; Speech is slow and soft; psychomotor retardation present; thought process is organized and goal directed; Thought content is on tx; otherwise pertinent to relevant topics and without any delusional content, paranoid ideations or grandiosity; no any SI/HI/AVH expressed. Patients insight and judgment impaired. Diagnostics Vital Signs (24Hr): Vital Signs - 24 hr 06/29/25 20:00 06/30/25 08:00 Temperature 100.8 F H 98.4 F Pulse Rate 60 50 Respiratory Rate 16 Blood Pressure 78/37 L 97/51 L Pulse Oximetry 99 98 Oxygen Delivery Method Room Air Room Air BMI result Body Mass Index 30.3 Medications Medications Current Medications Al Hydroxide/Mg Hydroxide (Magnesium Hydrox/Alum Hydrox 30 Ml Oral.Susp) 30 ml PO Q6H PRN PRN Reason: Heartburn/Nausea Folic Acid (Folic Acid 1 Mg Tablet) 1 mg PO DAILY COUNTS INCLUDE 234 BEDS AT THE [facility] Last Admin: 06/30/25 09:01 Dose: 1 mg Ibuprofen (Ibuprofen 600 Mg Tablet) 600 mg PO BID PRN PRN Reason: Pain, Mild 1-3,fever,headache Magnesium Hydroxide (Milk Of Magnesia 30 Ml Oral.Susp) 30 ml PO DAILY PRN PRN Reason: Constipation Naltrexone HCl (Naltrexone Hcl 50 Mg Tablet) 50 mg PO DAILY COUNTS INCLUDE 234 BEDS AT THE [facility] Last Admin: 06/30/25 09:04 Dose: 50 mg Nicotine (Nicotine 21 Mg Patch.Td24) 21 mg TRANSDERMA DAILY PRN PRN Reason: smoking cessation Nicotine Polacrilex (Nicotine Polacrilex 2 Mg Gum) 4 mg BUCCAL Q2H PRN PRN Reason: Nicotine Cravings Olanzapine (Olanzapine 2.5 Mg Tablet) 2.5 mg PO TID PRN PRN Reason: agitation Sertraline HCl (Sertraline Hcl 50 Mg Tablet) 50 mg PO DAILY COUNTS INCLUDE 234 BEDS AT THE [facility] Stop: 07/01/25 09:00 Last Admin: 06/30/25 09:01 Dose: 50 mg Sertraline HCl (Sertraline Hcl 25 Mg Tablet) 75 mg PO DAILY COUNTS INCLUDE 234 BEDS AT THE [facility] Thiamine HCl (Thiamine Hcl 100 Mg Tablet) 100 mg PO DAILY COUNTS INCLUDE 234 BEDS AT THE [facility] Last Admin: 06/30/25 09:00 Dose: 100 mg Trazodone HCl (Trazodone Hcl 50 Mg Tablet) 50 mg PO BEDTIME MRX1 PRN PRN Reason: insomnia Trazodone HCl (Trazodone Hcl 50 Mg Tablet) 50 mg PO BEDTIME ED Last Admin: 06/29/25 21:10 Dose: 50 mg Allergies Allergies Allergy/AdvReac Type Severity Reaction Status Date / Time No Known Allergies Allergy Verified 06/24/25 10:25 Assessment & Plan Assessment & Plan (1) MDD (major depressive disorder), recurrent severe, without psychosis: Status: Acute Code(s): F33.2 - Major depressive disorder, recurrent severe without psychotic features (2) PTSD (post-traumatic stress disorder): Status: Acute Code(s): F43.10 - Post-traumatic stress disorder, unspecified (3) Cocaine use disorder: Status: Acute Code(s): F14.10 - Cocaine abuse, uncomplicated (4) Opioid use disorder: Status: Acute Code(s): F11.90 - Opioid use, unspecified, uncomplicated (5) Hypotension: Qualifiers: Hypotension type: other hypotension type Qualified Code(s): I95.89 - Other hypotension Status: Acute Code(s): I95.9 - Hypotension, unspecified Plan HPI: Pt is a 45 yo female with hx of depression, ptsd, cocaine/opioid abuse who presents for depression and SI in face of being off medications and embroiled in substance abuse with crack cocaine and heroin. Initially medically admitted for hypotension. Pt reports she was sober for 11 years but relapsed about 3 years ago. She was benefiting from Zoloft but stopped medications about a year ago and her depression returned and Substance abuse continued. She says I was using drugs, couldn't stop.. depressed, anxious... Over the months she's been trying to stay sober and could do so for 2-3 weeks but she would then relapse. Pt says past few weeks depression worsened and she was not getting out of bed, not talking to anyone. Patient says while being intoxicated she had AH telling me to burn myself...in that moment i hated myself... She had SI to jump from a bridge but self-presented instead. Denies hx of manic episodoes or behaviors AH only when intoxicated hx SIB to burn self but has refrained Formulation/clinical reasoning: pt with hx of MDD, PTSD exacerbated by drug use. AH substance induced and now resolved. She benefited from Zoloft and after content writer reviewed risks/side-effects she wants to restart. Pt wants help with getting into a program for help w/ sobriety. -pt mildly hypotensive, asymptomatic and stable Hospital course: 06/29 pt remains very depressed; misses kids and laments her struggles with drug abuse. Discussed behavioral activation and pt will engage. Agrees to Zoloft titration. Discussed MAT and she would like to try Naltrexone since she struggles w/ opiates (reviewed risks/side effects) -titrate zoloft -start Naltrexone; will check lfts -monitor BP's (remains asymptomatic) 06/30: continue zoloft and naltrexone. moderate improvement in mood and affect. continue current mgmt. no side effects, no complaints or requests. Plan: cv q15 Titrate Zoloft start naltrexone Trazodone for sleep (says has helped in past) DC Wellbutrin for now (as pt identified Zoloft as helpful antidepressant) CCC consult Reason for continued inpatient stay Substantial Risk for: harm to self, inability to function and rapid decompensation Time Spent With Patient Time: Total time managing care of this patient today __25__ minutes.
[2025-06-30 20:00] VITALS: BP 86/45; PULSE 58; TEMP 36.7; O2SAT 100
[2025-07-01 08:00] VITALS: BP 111/56; PULSE 52; RESP 16; TEMP 36.9; O2SAT 97
--- NOTE | 2025-07-01 13:57 | HO.PSYCHPN ---
Subjective Subjective Date of Service: 07/01/25 Reason For Visit: cocaine use disorder major depression with SI Subjective Notes: Conditional Voluntary Healthcare Proxy: No Guardianship: No Medical Problems Affecting Mental Status: No Interim History: seen in her room, she was pleasant. Circumstances leading to hospitalization were reviewed. She says that she's feeling so-so today. She denies SI/HI/AVH. She said that she had a headache and vomiting yesterday, still has some nausea today. Oh why she denies immediate concerns about her care. Medication Compliance: Yes Side effects from medications: No Attending Groups: Intermittent Review of Systems Acute medical concerns: No Medical Review of Systems: unchanged Review of Systems Review of Systems Yes all other systems are reviewed and are negative Mental Status Exam Mental Status Exam Narrative: Patient Appearance: Well Groomed, adequate hygiene Patient Behavior: Appropriate Level of Consciousness: Awake, alert Patient Orientation: Person, Place and Time, situational context Memory: grossly intact to recent events Psychomotor: no agitation or slowing Speech: normal rate, tone, volume Mood: ?so-so? Affect: mild blunting Thought Process: Goal Oriented Thought Content: denies SI/HI; focused on treatment questions Hallucinations: Denies; does not appear preoccupied Delusions: None evinced Insight: mild impairment Judgment: mild impairment Impulsivity: low Diagnostics Vital Signs (24Hr): Vital Signs - 24 hr 06/30/25 20:00 07/01/25 08:00 Temperature 98.1 F 98.4 F Pulse Rate 58 52 Respiratory Rate 16 Blood Pressure 86/45 L 111/56 L Pulse Oximetry 100 97 Oxygen Delivery Method Room Air Room Air BMI result Body Mass Index 30.3 Medications Medications Current Medications Al Hydroxide/Mg Hydroxide (Magnesium Hydrox/Alum Hydrox 30 Ml Oral.Susp) 30 ml PO Q6H PRN PRN Reason: Heartburn/Nausea Folic Acid (Folic Acid 1 Mg Tablet) 1 mg PO DAILY [facility] Last Admin: 07/01/25 09:13 Dose: 1 mg Ibuprofen (Ibuprofen 600 Mg Tablet) 600 mg PO BID PRN PRN Reason: Pain, Mild 1-3,fever,headache Last Admin: 06/30/25 20:40 Dose: 600 mg Magnesium Hydroxide (Milk Of Magnesia 30 Ml Oral.Susp) 30 ml PO DAILY PRN PRN Reason: Constipation Naltrexone HCl (Naltrexone Hcl 50 Mg Tablet) 50 mg PO DAILY ED Last Admin: 07/01/25 09:13 Dose: Not Given Nicotine (Nicotine 21 Mg Patch.Td24) 21 mg TRANSDERMA DAILY PRN PRN Reason: smoking cessation Nicotine Polacrilex (Nicotine Polacrilex 2 Mg Gum) 4 mg BUCCAL Q2H PRN PRN Reason: Nicotine Cravings Olanzapine (Olanzapine 2.5 Mg Tablet) 2.5 mg PO TID PRN PRN Reason: agitation Sertraline HCl (Sertraline Hcl 25 Mg Tablet) 75 mg PO DAILY ED Thiamine HCl (Thiamine Hcl 100 Mg Tablet) 100 mg PO DAILY ED Last Admin: 07/01/25 09:13 Dose: 100 mg Trazodone HCl (Trazodone Hcl 50 Mg Tablet) 50 mg PO BEDTIME MRX1 PRN PRN Reason: insomnia Trazodone HCl (Trazodone Hcl 50 Mg Tablet) 50 mg PO BEDTIME ED Last Admin: 06/30/25 20:40 Dose: 50 mg Allergies Allergies Allergy/AdvReac Type Severity Reaction Status Date / Time No Known Allergies Allergy Verified 06/24/25 10:25 Assessment & Plan Assessment & Plan (1) Hypotension: Qualifiers: Hypotension type: other hypotension type Qualified Code(s): I95.89 - Other hypotension Status: Acute Code(s): I95.9 - Hypotension, unspecified Plan Pt is a 45 yo female with hx of depression, ptsd, cocaine/opioid abuse who presents for depression and SI in face of being off medications and embroiled in substance abuse with crack cocaine and heroin. Initially medically admitted for hypotension. Pt reports she was sober for 11 years but relapsed about 3 years ago. She was benefiting from Zoloft but stopped medications about a year ago and her depression returned and Substance abuse continued. She says I was using drugs, couldn't stop.. depressed, anxious... Over the months she's been trying to stay sober and could do so for 2-3 weeks but she would then relapse. Pt says past few weeks depression worsened and she was not getting out of bed, not talking to anyone. Patient says while being intoxicated she had AH telling me to burn myself...in that moment i hated myself... She had SI to jump from a bridge but self-presented instead. Denies hx of manic episodoes or behaviors AH only when intoxicated hx SIB to burn self but has refrained Formulation/clinical reasoning: pt with hx of MDD, PTSD exacerbated by drug use. AH substance induced and now resolved. 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 Pt wants help with getting into a program for help w/ sobriety. -pt mildly hypotensive, asymptomatic and stable Hospital course: 06/29 pt remains very depressed; misses kids and laments her struggles with drug abuse. Discussed behavioral activation and pt will engage. Agrees to Zoloft titration. Discussed MAT and she would like to try Naltrexone since she struggles w/ opiates (reviewed risks/side effects) -titrate zoloft -start Naltrexone; will check lfts -monitor BP's (remains asymptomatic) 06/30: continue zoloft and naltrexone. moderate improvement in mood and affect. continue current mgmt. no side effects, no complaints or requests. 07/01: no change Plan: cv q15 Titrate Zoloft start naltrexone Trazodone for sleep (says has helped in past) DC Wellbutrin for now (as pt identified Zoloft as helpful antidepressant) CCC consult Patient educated on: diagnosis and medication risk/benefits Informed Consent: understands Reason for continued inpatient stay Substantial Risk for: harm to self, inability to function and rapid decompensation Time Spent With Patient Time: Total time managing care of this patient today _15___ minutes.
[2025-07-01 20:00] VITALS: BP 87/52; PULSE 71; TEMP 36.9; O2SAT 99
[2025-07-02 08:30] VITALS: BP 105/53; PULSE 57; RESP 18; TEMP 37.2; O2SAT 96
[2025-07-02 08:46] LABS: Alanine Aminotransferase 20 U/L (0-31); Albumin Level 4.2 g/dL (3.5-5.0); Alkaline Phosphatase 62 U/L (39-117); Aspartate Amino Transferase 20 U/L (5-31); Total Protein 7.0 g/dL (6.5-8.0)
--- NOTE | 2025-07-02 14:44 | P.PNPSI_ITS ---
Subjective Subjective Date of Service: 07/02/25 Reason For Visit: cocaine use disorder major depression with SI Subjective Notes: Conditional Voluntary Healthcare Proxy: No Guardianship: No Medical Problems Affecting Mental Status: No Interim History: Patient was seen in her room. She presented calm, has been resting today. She said that her mood was so so. She states that she's not like how the new antidepressant is making her feel, and she would like to talk about a different medication option with her primary team. She also has been endorsing nausea, and technical document writer reviewed with her that we will make Zofran available for her to take as needed. She voiced understanding. Otherwise, she denies SI/HI/AVH she denied having other concerns about her care at this time. Medication Compliance: Yes Side effects from medications: Yes Attending Groups: Intermittent Review of Systems Acute medical concerns: No Medical Review of Systems: unchanged Review of Systems Review of Systems Yes all other systems are reviewed and are negative Mental Status Exam Mental Status Exam Narrative: Patient Appearance: Well Groomed, adequate hygiene Patient Behavior: Appropriate Level of Consciousness: Awake, alert Patient Orientation: Person, Place and Time, situational context Memory: grossly intact to recent events Psychomotor: no agitation or slowing Speech: normal rate, tone, volume Mood: ?okay? Affect: appropriate range Thought Process: Goal Oriented Thought Content: denies SI/HI; focused on treatment questions Hallucinations: Denies; does not appear preoccupied Delusions: None evinced Insight: mild impairment Judgment: mild impairment Impulsivity: low Diagnostics Vital Signs (24Hr): Vital Signs - 24 hr 07/01/25 20:00 07/02/25 08:30 Temperature 98.4 F 99.0 F Pulse Rate 71 57 Respiratory Rate 18 Blood Pressure 87/52 L 105/53 L Pulse Oximetry 99 96 Oxygen Delivery Method Room Air Room Air BMI result Body Mass Index 30.3 Labs Labs: Laboratory Results - last 48 hr 07/02/25 07:44 Total Bilirubin 0.4 Direct Bilirubin 0.2 AST 20 ALT 20 Alkaline Phosphatase 62 Total Protein 7.0 Albumin 4.2 Medications Medications Current Medications Al Hydroxide/Mg Hydroxide (Magnesium Hydrox/Alum Hydrox 30 Ml Oral.Susp) 30 ml PO Q6H PRN PRN Reason: Heartburn/Nausea Folic Acid (Folic Acid 1 Mg Tablet) 1 mg PO DAILY ED Last Admin: 07/02/25 08:47 Dose: 1 mg Ibuprofen (Ibuprofen 600 Mg Tablet) 600 mg PO BID PRN PRN Reason: Pain, Mild 1-3,fever,headache Last Admin: 06/30/25 20:40 Dose: 600 mg Magnesium Hydroxide (Milk Of Magnesia 30 Ml Oral.Susp) 30 ml PO DAILY PRN PRN Reason: Constipation Naltrexone HCl (Naltrexone Hcl 50 Mg Tablet) 50 mg PO DAILY [facility] Last Admin: 07/02/25 08:47 Dose: 50 mg Nicotine (Nicotine 21 Mg Patch.Td24) 21 mg TRANSDERMA DAILY PRN PRN Reason: smoking cessation Nicotine Polacrilex (Nicotine Polacrilex 2 Mg Gum) 4 mg BUCCAL Q2H PRN PRN Reason: Nicotine Cravings Olanzapine (Olanzapine 2.5 Mg Tablet) 2.5 mg PO TID PRN PRN Reason: agitation Ondansetron HCl (Ondansetron Odt 4 Mg Tab.Rapdis) 4 mg TRANSLINGU Q6H PRN PRN Reason: Nausea and Vomiting Sertraline HCl (Sertraline Hcl 25 Mg Tablet) 75 mg PO DAILY [facility] Last Admin: 07/02/25 08:48 Dose: 75 mg Thiamine HCl (Thiamine Hcl 100 Mg Tablet) 100 mg PO DAILY [facility] Last Admin: 07/02/25 08:47 Dose: 100 mg Trazodone HCl (Trazodone Hcl 50 Mg Tablet) 50 mg PO BEDTIME MRX1 PRN PRN Reason: insomnia Trazodone HCl (Trazodone Hcl 50 Mg Tablet) 50 mg PO BEDTIME [facility] Last Admin: 07/01/25 20:38 Dose: 50 mg Allergies Allergies Allergy/AdvReac Type Severity Reaction Status Date / Time No Known Allergies Allergy Verified 06/24/25 10:25 Assessment & Plan Assessment & Plan (1) Hypotension: Qualifiers: Hypotension type: other hypotension type Qualified Code(s): I95.89 - Other hypotension Status: Acute Code(s): I95.9 - Hypotension, unspecified Plan Pt is a 45 yo female with hx of depression, ptsd, cocaine/opioid abuse who presents for depression and SI in face of being off medications and embroiled in substance abuse with crack cocaine and heroin. Initially medically admitted for hypotension. Pt reports she was sober for 11 years but relapsed about 3 years ago. She was benefiting from Zoloft but stopped medications about a year ago and her depression returned and Substance abuse continued. She says I was using drugs, couldn't stop.. depressed, anxious... Over the months she's been trying to stay sober and could do so for 2-3 weeks but she would then relapse. Pt says past few weeks depression worsened and she was not getting out of bed, not talking to anyone. Patient says while being intoxicated she had AH telling me to burn myself...in that moment i hated myself... She had SI to jump from a bridge but self-presented instead. Denies hx of manic episodoes or behaviors AH only when intoxicated hx SIB to burn self but has refrained Formulation/clinical reasoning: pt with hx of MDD, PTSD exacerbated by drug use. AH substance induced and now resolved. She benefited from Zoloft and after technical document writer reviewed risks/side-effects she wants to restart. Pt wants help with getting into a program for help w/ sobriety. -pt mildly hypotensive, asymptomatic and stable Hospital course: 06/29 pt remains very depressed; misses kids and laments her struggles with drug abuse. Discussed behavioral activation and pt will engage. Agrees to Zoloft titration. Discussed MAT and she would like to try Naltrexone since she struggles w/ opiates (reviewed risks/side effects) -titrate zoloft -start Naltrexone; will check lfts -monitor BP's (remains asymptomatic) 06/30: continue zoloft and naltrexone. moderate improvement in mood and affect. continue current mgmt. no side effects, no complaints or requests. 07/01: no change 07/02: add Zofran 4 mg ODT PO q6h PRN nausea; primary team may f/u on antidepressant regimen questions Plan: cv q15 Titrate Zoloft start naltrexone Trazodone for sleep (says has helped in past) DC Wellbutrin for now (as pt identified Zoloft as helpful antidepressant) CCC consult Patient educated on: diagnosis and medication risk/benefits Informed Consent: understands Reason for continued inpatient stay Substantial Risk for: rapid decompensation Time Spent With Patient Time: Total time managing care of this patient today __15__ minutes.
[2025-07-02 20:01] VITALS: BP 105/54; PULSE 75; RESP 16; TEMP 36.8; O2SAT 99
[2025-07-03 07:48] VITALS: BP 97/52; PULSE 49; TEMP 36.6; O2SAT 98
--- NOTE | 2025-07-03 11:13 | HO.PSYCHPN ---
Subjective Subjective Date of Service: 07/03/25 Reason For Visit: cocaine use disorder major depression with SI Interim History: c/o daily nausea. discussed SSRI versus naltrexone as potential causes. decided to DC naltrexone as likely cause and continue zoloft. pt asking about resi program in [place], afraid of going back to the street believing she will from drug use if she does. seen with site interpreter. Mental Status Exam Mental Status Exam Narrative: Pt is alert and oriented; behavior is cooperative and calm; patient is not in distress; dressed in hospital attire with unkempt hair; mood is improved and affect congruent; eye contact fair; Speech is slow and soft; no PMA/PMR; thought process is organized and goal directed; Thought content is on tx; otherwise pertinent to relevant topics and without any delusional content, paranoid ideations or grandiosity; no any SI/HI/AVH expressed. Patients insight and judgment impaired. Diagnostics Vital Signs (24Hr): Vital Signs - 24 hr 07/02/25 20:01 07/03/25 07:48 Temperature 98.2 F 97.9 F Pulse Rate 75 49 L Respiratory Rate 16 Blood Pressure 105/54 L 97/52 L Pulse Oximetry 99 98 Oxygen Delivery Method Room Air Room Air BMI result Body Mass Index 30.3 Labs Labs: Laboratory Results - last 48 hr 07/02/25 07:44 Total Bilirubin 0.4 Direct Bilirubin 0.2 AST 20 ALT 20 Alkaline Phosphatase 62 Total Protein 7.0 Albumin 4.2 Medications Medications Current Medications Al Hydroxide/Mg Hydroxide (Magnesium Hydrox/Alum Hydrox 30 Ml Oral.Susp) 30 ml PO Q6H PRN PRN Reason: Heartburn/Nausea Ibuprofen (Ibuprofen 600 Mg Tablet) 600 mg PO BID PRN PRN Reason: Pain, Mild 1-3,fever,headache Last Admin: 06/30/25 20:40 Dose: 600 mg Magnesium Hydroxide (Milk Of Magnesia 30 Ml Oral.Susp) 30 ml PO DAILY PRN PRN Reason: Constipation Nicotine (Nicotine 21 Mg Patch.Td24) 21 mg TRANSDERMA DAILY PRN PRN Reason: smoking cessation Nicotine Polacrilex (Nicotine Polacrilex 2 Mg Gum) 4 mg BUCCAL Q2H PRN PRN Reason: Nicotine Cravings Olanzapine (Olanzapine 2.5 Mg Tablet) 2.5 mg PO TID PRN PRN Reason: agitation Ondansetron HCl (Ondansetron Odt 4 Mg Tab.Rapdis) 4 mg TRANSLINGU Q6H PRN PRN Reason: Nausea and Vomiting Last Admin: 07/02/25 18:55 Dose: 4 mg Sertraline HCl (Sertraline Hcl 25 Mg Tablet) 75 mg PO DAILY [facility] Last Admin: 07/03/25 10:32 Dose: 75 mg Trazodone HCl (Trazodone Hcl 50 Mg Tablet) 50 mg PO BEDTIME MRX1 PRN PRN Reason: insomnia Trazodone HCl (Trazodone Hcl 50 Mg Tablet) 50 mg PO BEDTIME [facility] Last Admin: 07/02/25 21:05 Dose: 50 mg Allergies Allergies Allergy/AdvReac Type Severity Reaction Status Date / Time No Known Allergies Allergy Verified 06/24/25 10:25 Assessment & Plan Assessment & Plan (1) Hypotension: Qualifiers: Hypotension type: other hypotension type Qualified Code(s): I95.89 - Other hypotension Status: Acute Code(s): I95.9 - Hypotension, unspecified Plan Pt is a 45 yo female with hx of depression, ptsd, cocaine/opioid abuse who presents for depression and SI in face of being off medications and embroiled in substance abuse with crack cocaine and heroin. Initially medically admitted for hypotension. Pt reports she was sober for 11 years but relapsed about 3 years ago. She was benefiting from Zoloft but stopped medications about a year ago and her depression returned and Substance abuse continued. She says I was using drugs, couldn't stop.. depressed, anxious... Over the months she's been trying to stay sober and could do so for 2-3 weeks but she would then relapse. Pt says past few weeks depression worsened and she was not getting out of bed, not talking to anyone. Patient says while being intoxicated she had AH telling me to burn myself...in that moment i hated myself... She had SI to jump from a bridge but self-presented instead. Denies hx of manic episodoes or behaviors AH only when intoxicated hx SIB to burn self but has refrained Formulation/clinical reasoning: pt with hx of MDD, PTSD exacerbated by drug use. AH substance induced and now resolved. She benefited from Zoloft and after medical technical writer reviewed risks/side-effects she wants to restart. Pt wants help with getting into a program for help w/ sobriety. -pt mildly hypotensive, asymptomatic and stable Hospital course: 06/29 pt remains very depressed; misses kids and laments her struggles with drug abuse. Discussed behavioral activation and pt will engage. Agrees to Zoloft titration. Discussed MAT and she would like to try Naltrexone since she struggles w/ opiates (reviewed risks/side effects) -titrate zoloft -start Naltrexone; will check lfts -monitor BP's (remains asymptomatic) 06/30: continue zoloft and naltrexone. moderate improvement in mood and affect. continue current mgmt. no side effects, no complaints or requests. 07/01: no change 07/03: DC naltrexone as likely cause of nausea. continue zoloft. DC vitamins per pt request. interested in resi program in [facility]. Plan: cv q15 Titrate Zoloft start naltrexone Trazodone for sleep (says has helped in past) DC Wellbutrin for now (as pt identified Zoloft as helpful antidepressant) CCC consult Reason for continued inpatient stay Substantial Risk for: inability to function and med/psych decompensation Time Spent With Patient Time: Total time managing care of this patient today __25__ minutes.
[2025-07-03 20:19] VITALS: BP 98/51; PULSE 50; RESP 16; TEMP 37.3; O2SAT 100
[2025-07-04 08:12] VITALS: BP 108/56; PULSE 66; TEMP 36.6; O2SAT 96
--- NOTE | 2025-07-04 12:07 | HO.PSYCHPN ---
Subjective Subjective Date of Service: 07/04/25 Reason For Visit: cocaine use disorder major depression with SI Interim History: stripper black and white present. Patient reports feeling good today; she is focused on being able to go to [facility]. Patient stated, I think the conversation went well. I hope they let me go to the program . Patient report some anxiety regarding waiting to hear from program. She reports sleeping well. denies SI/HI/VH/AH. Continue current tx plan. Medication Compliance: Yes Side effects from medications: No Mental Status Exam Mental Status Exam Patient Appearance: Appropriate Patient Orientation: Person, Place, Time and Situation Level of Consciousness: Awake and Alert Patient Behavior: Appropriate, Cooperative and Good Eye Contact Mood Description: Anxious Affect Description: Anxious Ability to Follow Directions: Good Speech Pattern: Clear Memory Description: Intact Hallucinations: None Delusions: Not Present Thought Process: Intact Thought Content: positive for Intact Diagnostics Vital Signs (24Hr): Vital Signs - 24 hr 07/03/25 20:19 07/04/25 08:12 Temperature 99.1 F 98 F Pulse Rate 50 66 Respiratory Rate 16 Blood Pressure 98/51 L 108/56 L Pulse Oximetry 100 96 Oxygen Delivery Method Room Air Room Air BMI result Body Mass Index 30.3 Medications Medications Current Medications Al Hydroxide/Mg Hydroxide (Magnesium Hydrox/Alum Hydrox 30 Ml Oral.Susp) 30 ml PO Q6H PRN PRN Reason: Heartburn/Nausea Ibuprofen (Ibuprofen 600 Mg Tablet) 600 mg PO BID PRN PRN Reason: Pain, Mild 1-3,fever,headache Last Admin: 06/30/25 20:40 Dose: 600 mg Magnesium Hydroxide (Milk Of Magnesia 30 Ml Oral.Susp) 30 ml PO DAILY PRN PRN Reason: Constipation Nicotine (Nicotine 21 Mg Patch.Td24) 21 mg TRANSDERMA DAILY PRN PRN Reason: smoking cessation Nicotine Polacrilex (Nicotine Polacrilex 2 Mg Gum) 4 mg BUCCAL Q2H PRN PRN Reason: Nicotine Cravings Olanzapine (Olanzapine 2.5 Mg Tablet) 2.5 mg PO TID PRN PRN Reason: agitation Last Admin: 07/03/25 17:09 Dose: 2.5 mg Ondansetron HCl (Ondansetron Odt 4 Mg Tab.Rapdis) 4 mg TRANSLINGU Q6H PRN PRN Reason: Nausea and Vomiting Last Admin: 07/02/25 18:55 Dose: 4 mg Sertraline HCl (Sertraline Hcl 25 Mg Tablet) 75 mg PO DAILY [facility] Last Admin: 07/04/25 09:29 Dose: 75 mg Trazodone HCl (Trazodone Hcl 50 Mg Tablet) 50 mg PO BEDTIME MRX1 PRN PRN Reason: insomnia Trazodone HCl (Trazodone Hcl 50 Mg Tablet) 50 mg PO BEDTIME [facility] Last Admin: 07/03/25 21:29 Dose: 50 mg Allergies Allergies Allergy/AdvReac Type Severity Reaction Status Date / Time No Known Allergies Allergy Verified 06/24/25 10:25 Assessment & Plan Assessment & Plan (1) Hypotension: Qualifiers: Hypotension type: other hypotension type Qualified Code(s): I95.89 - Other hypotension Status: Acute Code(s): I95.9 - Hypotension, unspecified Plan Pt is a 45 yo female with hx of depression, ptsd, cocaine/opioid abuse who presents for depression and SI in face of being off medications and embroiled in substance abuse with crack cocaine and heroin. Initially medically admitted for hypotension. Pt reports she was sober for 11 years but relapsed about 3 years ago. She was benefiting from Zoloft but stopped medications about a year ago and her depression returned and Substance abuse continued. She says I was using drugs, couldn't stop.. depressed, anxious... Over the months she's been trying to stay sober and could do so for 2-3 weeks but she would then relapse. Pt says past few weeks depression worsened and she was not getting out of bed, not talking to anyone. Patient says while being intoxicated she had AH telling me to burn myself...in that moment i hated myself... She had SI to jump from a bridge but self-presented instead. Denies hx of manic episodoes or behaviors AH only when intoxicated hx SIB to burn self but has refrained Formulation/clinical reasoning: pt with hx of MDD, PTSD exacerbated by drug use. AH substance induced and now resolved. She benefited from Zoloft and after advertising writer reviewed risks/side-effects she wants to restart. Pt wants help with getting into a program for help w/ sobriety. -pt mildly hypotensive, asymptomatic and stable Hospital course: 06/29 pt remains very depressed; misses kids and laments her struggles with drug abuse. Discussed behavioral activation and pt will engage. Agrees to Zoloft titration. Discussed MAT and she would like to try Naltrexone since she struggles w/ opiates (reviewed risks/side effects) -titrate zoloft -start Naltrexone; will check lfts -monitor BP's (remains asymptomatic) 06/30: continue zoloft and naltrexone. moderate improvement in mood and affect. continue current mgmt. no side effects, no complaints or requests. 07/01: no change 07/03: DC naltrexone as likely cause of nausea. continue zoloft. DC vitamins per pt request. interested in resi program in [facility]. 07/04: stripper black and white present. Patient reports feeling good today; she is focused on being able to go to [facility]. Patient stated, I think the conversation went well. I hope they let me go to the program . Patient report some anxiety regarding waiting to hear from program. She reports sleeping well. denies SI/HI/VH/AH. Continue current tx plan. Plan: cv q15 Titrate Zoloft start naltrexone Trazodone for sleep (says has helped in past) DC Wellbutrin for now (as pt identified Zoloft as helpful antidepressant) CCC consult Patient educated on: diagnosis, medication risk/benefits and therapeutic strategies Reason for continued inpatient stay Substantial Risk for: med/psych decompensation Time Spent With Patient Time: Total time managing care of this patient today _20___ minutes.
[2025-07-04 20:00] VITALS: BP 105/53; PULSE 62; TEMP 36.9; O2SAT 99
[2025-07-05 08:51] VITALS: BP 102/54; PULSE 51; RESP 16; TEMP 37.1; O2SAT 98
--- NOTE | 2025-07-05 09:14 | P.PNPSI_ITS ---
Subjective Subjective Date of Service: 07/05/25 Reason For Visit: cocaine use disorder major depression with SI Subjective Notes: Conditional Voluntary Medication Compliance: Yes Side effects from medications: No Attending Groups: Yes Review of Systems Acute medical concerns: No Patient states that she is feeling good. She is happy but anxious about being discharged tomorrow to go to the [facility] program to receive assistance with recovery. She reports mild depression. She denies SI/HI/AH/VH. She is ready for discharge tomorrow 07/06/2025. Medical Review of Systems: unchanged Review of Systems Review of Systems Yes all other systems are reviewed and are negative Mental Status Exam Mental Status Exam Narrative: Appearance: Casually dressed, adequate hygiene Behavior: Calm and cooperative throughout the interview. Eye contact is appropriate, and there are no signs of psychomotor agitation or retardation Speech: Normal volume and prosody Thought process: Logical and goal-directed Thought content: Future oriented no self-harming thoughts Mood: Euthymic Affect: Full, mood-congruent SI:denies HI:denies VH/AH:none Delusions: None Insight/judgment: Good insight and judgment Memory/cog: Alert, oriented x 4. grossly intact to conversational testing Diagnostics Vital Signs (24Hr): Vital Signs - 24 hr 07/04/25 20:00 07/05/25 08:51 Temperature 98.4 F 98.7 F Pulse Rate 62 51 Respiratory Rate 16 Blood Pressure 105/53 L 102/54 L Pulse Oximetry 99 98 Oxygen Delivery Method Room Air Room Air BMI result Body Mass Index 30.3 Medications Medications Current Medications Al Hydroxide/Mg Hydroxide (Magnesium Hydrox/Alum Hydrox 30 Ml Oral.Susp) 30 ml PO Q6H PRN PRN Reason: Heartburn/Nausea Ibuprofen (Ibuprofen 600 Mg Tablet) 600 mg PO BID PRN PRN Reason: Pain, Mild 1-3,fever,headache Last Admin: 06/30/25 20:40 Dose: 600 mg Magnesium Hydroxide (Milk Of Magnesia 30 Ml Oral.Susp) 30 ml PO DAILY PRN PRN Reason: Constipation Nicotine (Nicotine 21 Mg Patch.Td24) 21 mg TRANSDERMA DAILY PRN PRN Reason: smoking cessation Nicotine Polacrilex (Nicotine Polacrilex 2 Mg Gum) 4 mg BUCCAL Q2H PRN PRN Reason: Nicotine Cravings Olanzapine (Olanzapine 2.5 Mg Tablet) 2.5 mg PO TID PRN PRN Reason: agitation Last Admin: 07/03/25 17:09 Dose: 2.5 mg Ondansetron HCl (Ondansetron Odt 4 Mg Tab.Rapdis) 4 mg TRANSLINGU Q6H PRN PRN Reason: Nausea and Vomiting Last Admin: 07/02/25 18:55 Dose: 4 mg Sertraline HCl (Sertraline Hcl 25 Mg Tablet) 75 mg PO DAILY [facility] Last Admin: 07/05/25 09:00 Dose: 75 mg Trazodone HCl (Trazodone Hcl 50 Mg Tablet) 50 mg PO BEDTIME MRX1 PRN PRN Reason: insomnia Trazodone HCl (Trazodone Hcl 50 Mg Tablet) 50 mg PO BEDTIME ED Last Admin: 07/04/25 20:27 Dose: 50 mg Allergies Allergies Allergy/AdvReac Type Severity Reaction Status Date / Time No Known Allergies Allergy Verified 06/24/25 10:25 Assessment & Plan Assessment & Plan (1) Hypotension: Qualifiers: Hypotension type: other hypotension type Qualified Code(s): I95.89 - Other hypotension Status: Resolved Code(s): I95.9 - Hypotension, unspecified Plan Pt is a 45 yo female with hx of depression, ptsd, cocaine/opioid abuse who presents for depression and SI in face of being off medications and embroiled in substance abuse with crack cocaine and heroin. Initially medically admitted for hypotension. Pt reports she was sober for 11 years but relapsed about 3 years ago. She was benefiting from Zoloft but stopped medications about a year ago and her depression returned and Substance abuse continued. She says I was using mikki gs, couldn't stop.. depressed, anxious... Over the months she's been trying to stay sober and could do so for 2-3 weeks but she would then relapse. Pt says past few weeks depression worsened and she was not getting out of bed, not talking to anyone. Patient says while being intoxicated she had AH telling me to burn myself...in that moment i hated myself... She had SI to jump from a bridge but self-presented instead. Denies hx of manic episodoes or behaviors AH only when intoxicated hx SIB to burn self but has refrained Formulation/clinical reasoning: pt with hx of MDD, PTSD exacerbated by drug use. AH substance induced and now resolved. She benefited from Zoloft and after expert medical writer reviewed risks/side-effects she wants to restart. Pt wants help with getting into a program for help w/ sobriety. -pt mildly hypotensive, asymptomatic and stable Hospital course: 06/29 pt remains very depressed; misses kids and laments her struggles with drug abuse. Discussed behavioral activation and pt will engage. Agrees to Zoloft titration. Discussed MAT and she would like to try Naltrexone since she struggles w/ opiates (reviewed risks/side effects) -titrate zoloft -start Naltrexone; will check lfts -monitor BP's (remains asymptomatic) 06/30: continue zoloft and naltrexone. moderate improvement in mood and affect. continue current mgmt. no side effects, no complaints or requests. 07/01: no change 07/03: DC naltrexone as likely cause of nausea. continue zoloft. DC vitamins per pt request. interested in resi program in [facility]. 07/04: [employer] systems administrator present. Patient reports feeling good today; she is focused on being able to go to [facility]. Patient stated, I think the conversation went well. I hope they let me go to the program . Patient report some anxiety regarding waiting to hear from program. She reports sleeping well. denies SI/HI/VH/AH. Continue current tx plan. 07/05: Continue current treatment regimen. Discharge tomorrow 07/06/2025. Plan: cv q15 Titrate Zoloft start naltrexone Trazodone for sleep (says has helped in past) DC Wellbutrin for now (as pt identified Zoloft as helpful antidepressant) CCC consult Patient educated on: therapeutic strategies Reason for continued inpatient stay Substantial Risk for: stable for discharge Time Spent With Patient Time: Total time managing care of this patient today ____ minutes.
[2025-07-05 20:00] VITALS: BP 102/53; PULSE 60; RESP 16; TEMP 36.8; O2SAT 99
[2025-07-06 07:00] VITALS: BMI 27.7
--- NOTE | 2025-07-06 07:47 | PM.PSYDC ---
DS: Providers Provider Date of Service: 07/06/25 Date of admission: 06/27/25 11:09 Date of discharge: 07/06/25 Primary care physician: Sandi Adam MD Admitting clinician: Vargas Menon Attending physician on admission: Vargas Menon Consults: 06/27/25 11:30 Addiction Medicine Provider Routine Consulting Provider: Addiction Covering Reason for consultation: cocaine use disorder Has provider been notified: No 06/30/25 08:19 Consult to Hospitalist Routine Comment: Consulting Provider: [facility] Reason For Exam: continued hypotension (asymptomatic??) Attending physician on discharge: Vargas Menon Discharging clinician: Elizabeth Kent DS: Diagnosis Discharge Diagnosis (1) Hypotension: Status: Resolved DS: Medications Discharge Medications Home Medications: Home Medications ?Medication ?Instructions ?Recorded ?Confirmed bupropion HCl 75 mg tablet 75 mg PO DAILY 06/24/25 06/24/25 hydroxyzine HCl 50 mg tablet 50 mg PO BID PRN Anxiety 06/24/25 06/24/25 ibuprofen 600 mg tablet 600 mg PO BID PRN pain 06/24/25 06/24/25 nicotine (polacrilex) 4 mg gum 4 mg PO Q4H PRN Nicotine Cravings 06/24/25 06/24/25 trazodone 50 mg tablet 50 mg PO BEDTIME 06/24/25 06/24/25 Previous Rx's ?Medication ?Instructions ?Recorded sertraline 25 mg tablet 75 mg (3 x 25 mg) PO DAILY #90 tabs 07/05/25 trazodone 50 mg tablet 50 mg PO BEDTIME #30 tabs 07/05/25 Mental Status Exam Mental Status Exam Narrative: Appearance: Casually dressed, adequate hygiene, tearful Behavior: Calm and cooperative throughout the interview. Eye contact is appropriate, and there are no signs of psychomotor agitation or retardation Speech: Normal volume and prosody Thought process: Logical and goal-directed Thought content: Future oriented no self-harming thoughts Mood: Euthymic, anxious Affect: Full, mood-congruent SI:denies HI:denies VH/AH:none Delusions: None Insight/judgment: Good insight and judgment Memory/cog: Alert, oriented x 4. grossly intact to conversational testing Data Data Completed and Pending Completed studies during hospitalization [Text1]: 07/02/25 07:44 Total Bilirubin 0.4 Direct Bilirubin 0.2 AST 20 ALT 20 Alkaline Phosphatase 62 Total Protein 7.0 Albumin 4.2 DS: Summary Hospital Course Hospital Course: Plan Pt is a 45 yo female with hx of depression, ptsd, cocaine/opioid abuse who presents for depression and SI in face of being off medications and embroiled in substance abuse with crack cocaine and heroin. Initially medically admitted for hypotension. Pt reports she was sober for 11 years but relapsed about 3 years ago. She was benefiting from Zoloft but stopped medications about a year ago and her depression returned and Substance abuse continued. She says I was using drugs, couldn't stop.. depressed, anxious... Over the months she's been trying to stay sober and could do so for 2-3 weeks but she would then relapse. Pt says past few weeks depression worsened and she was not getting out of bed, not talking to anyone. Patient says while being intoxicated she had AH telling me to burn myself...in that moment i hated myself... She had SI to jump from a bridge but self-presented instead. Denies hx of manic episodoes or behaviors AH only when intoxicated hx SIB to burn self but has refrained Formulation/clinical reasoning: pt with hx of MDD, PTSD exacerbated by drug use. AH substance induced and now resolved. 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 Pt wants help with getting into a program for help w/ sobriety. -pt mildly hypotensive, asymptomatic and stable Hospital course: 06/29 pt remains very depressed; misses kids and laments her struggles with drug abuse. Discussed behavioral activation and pt will engage. Agrees to Zoloft titration. Discussed MAT and she would like to try Naltrexone since she struggles w/ opiates (reviewed risks/side effects) -titrate zoloft -start Naltrexone; will check lfts -monitor BP's (remains asymptomatic) 06/30: continue zoloft and naltrexone. moderate improvement in mood and affect. continue current mgmt. no side effects, no complaints or requests. 07/01: no change 07/03: DC naltrexone as likely cause of nausea. continue zoloft. DC vitamins per pt request. interested in resi program in [facility]. 07/04: seismic interpreter present. Patient reports feeling good today; she is focused on being able to go to [facility]. Patient stated, I think the conversation went well. I hope they let me go to the program . Patient report some anxiety regarding waiting to hear from program. She reports sleeping well. denies SI/HI/VH/AH. Continue current tx plan. 07/05: Continue current treatment regimen. Discharge tomorrow 07/06/2025. 07/06: Patient notes that she is feeling good. She is anxious about leaving today. She became emotional and tearful as she is worried about relapsing on drugs; however, she is happy about going to rehab. She denies SI/HI/AH/VH. She feels ready for discharge and will be discharged to the [facility] this morning. Time spent discussing smoking cessation with patient: 3 to 10 minutes Status at Discharge Functional status at discharge: independent ambulation Overall status at discharge: patient is back to baseline Time Spent with Patient Time attestation: Total time managing care of this patient today _30___ minutes. Time spent: Less than 30 minutes Discharge Plan Discharge Anticipated Discharge Date/Time: 07/06/25 11:00 Patient Disposition: Xfer Other Discharge Diagnosis: MDD, PTSD, opioid use disorder, cocaine use disorder Referrals: [facility] [Other] - 07/06/25 12:30 pm Referral Note: *You will arrive at the [facility] around 12:30 pm to undergo further treatment for your addiction. Good luck! [facility] [Other] - 1 Week Referral Note: *Please call for an immediate intake therapy appointment once you step down from CSS level of care. Sandi Adam MD [Primary Care Provider, Pediatrics] - 1 Week Discharge Medications: New sertraline 25 mg Tablet 75 mg PO DAILY Qty: 90 0RF trazodone 50 mg Tablet 50 mg PO BEDTIME Qty: 30 0RF Discontinued trazodone 50 mg tablet 50 mg PO BEDTIME hydroxyzine HCl 50 mg tablet 50 mg PO BID PRN (Reason: Anxiety) nicotine (polacrilex) 4 mg gum 4 mg PO Q4H PRN (Reason: Nicotine Cravings) bupropion HCl 75 mg tablet 75 mg PO DAILY ibuprofen 600 mg tablet 600 mg PO BID PRN (Reason: pain) Discharge Orders: Discharge Order (Routine); Ordered 07/05/25 Ordered By: Elizabeth Kent Diet: Advance to usual diet Activity on Discharge: As tolerated Stand Alone Forms: Patient Portal Discharge page, Community Support Print Language: Singaporean Care Plan Goals: Maintain mood and safe behaviors Take medications as prescribed Continue to pursue sobriety Practice coping skills Continue with outpatient providers and reach out to them as needed Health Concerns: Mood stability and behaviors Sobriety Plan of Treatment: Follow up with your PCP, psychiatric provider and other outpatient providers regarding above concerns Take medications as prescribed Assessment: Risk assessment at time of discharge:? Patient was interviewed prior to discharge and found to be fully oriented and without any SI or HI. Patient has improved insight and judgment and wants to continue treatment. Patient is not in imminent risk of harm to self or others and has a safety plan that includes presenting to the closest ER or calling 911 if feeling unsafe.? Patient has been observed closely by nursing and unit staff throughout admission; patient has not engaged in any behaviors that suggest dangerousness to self or others and has demonstrated appropriate behaviors and impulse control
[2025-07-06 08:55] VITALS: BP 105/51; PULSE 54; RESP 16; TEMP 37; O2SAT 98
== END 2025-07-06 11:58 | disposition other institution (70) | DRG 751 ==
PROVIDERS: Psychiatry & Neurology Psychiatry; Admitting Provider Clinical Nurse Specialist Psychiatric/Mental Health, Adult; PCP Internal Medicine; Visit Provider Clinical Nurse Specialist Psychiatric/Mental Health, Adult
DX: F33.2 Major depressive disorder, recurrent severe without psychotic features (principal); R45.851 Suicidal ideations; I95.9 Hypotension, unspecified; F43.10 Post-traumatic stress disorder, unspecified; F11.10 Opioid abuse, uncomplicated; F14.10 Cocaine abuse, uncomplicated; Z59.02 Unsheltered homelessness; Z79.899 Other long term (current) drug therapy
CPT/HCPCS: 36415; 80061; 80076; 82607; 82746; 83036; 83735; 84439; 84443

== ENCOUNTER → 2025-06-27 11:09 | Outpatient (BNV) | payer OTHER, SELFPAY | PROVIDERS: Admitting Provider Clinical Nurse Specialist Psychiatric/Mental Health, Adult; PCP Internal Medicine; Visit Provider Nurse Practitioner Family | DX: I95.89 Other hypotension (principal) | CPT/HCPCS: 99221 ==

== ENCOUNTER → 2025-06-27 11:09 | Outpatient (BNV) | payer OTHER, SELFPAY | PROVIDERS: Admitting Provider Clinical Nurse Specialist Psychiatric/Mental Health, Adult; PCP Internal Medicine; Visit Provider Psychiatry & Neurology Psychiatry | DX: F33.2 Major depressive disorder, recurrent severe without psychotic features (principal); F14.10 Cocaine abuse, uncomplicated; F11.90 Opioid use, unspecified, uncomplicated; F43.11 Post-traumatic stress disorder, acute; I95.89 Other hypotension | CPT/HCPCS: 90792 ==